=== PATIENT | female | born 1970 | race Two or more races ===

== ENCOUNTER 2016-03-25 17:44 | Emergency (ER) | payer SELFPAY ==
--- NOTE | 2016-03-25 17:50 | ER Document Report ---
ED Medical Screen (RME) - General Chief Complaint: Arm Injury Stated Complaint: RIGHT ARM INJURY Time seen by provider: 17:49 Mode of Arrival: Ambulatory Information source: Patient Notes: 45-year-old female complaining of right lateral proximal forearm pain after a vase fell off the counter onto her arm. She was concerned because she had previous surgery on the area 7 or 8 years ago. There is a superficial abrasion with some soft tissue swelling. TRAVEL OUTSIDE OF THE [place] IN LAST 30 DAYS: No - Related Data Allergies/Adverse Reactions: phenytoin sodium extended [From Dilantin] Allergy (Intermediate, Verified 17:36) rash topiramate [From Topamax] Allergy (Verified 01/16/16 17:36) Anaphylaxis tramadol [Tramadol] Allergy (Verified 01/16/16 17:36) Urticaria Past Medical History - Past Medical History Cardiac Medical History: Denies: Hx Heart Attack, Hx Hypertension Pulmonary Medical History: Reports: Hx Asthma Denies: Hx Bronchitis, Hx COPD, Hx Pneumonia Neurological Medical History: Reports: Hx Migraine, Hx Seizures - last Renal/ Medical History: Reports: Hx Kidney Stones Musculoskeltal Medical History: Reports Hx Arthritis - osteoarthritis, Reports Hx Musculoskeletal Trauma Skin Medical History: Reports Hx Cellulitis Traumatic Medical History: Reports: Hx Fractures Infectious Medical History: Reports: Hx HIV - No detectable viral loads Past Surgical History: Reports: Hx Abdominal Surgery - hernia, Hx Adenoidectomy , Hx Appendectomy, Hx Inguinal Hernia, Hx Tonsillectomy, Hx Tubal Ligation - Immunizations Immunizations up to date: Yes Hx Diphtheria, Pertussis, Tetanus Vaccination: Yes
[2016-03-25] MEDS ORDERED: ONDANSETRON 4 MG TAB.RAPDIS PO ONE (17:55)
--- NOTE | 2016-03-25 18:56 | ER Document Report ---
HPI - HPI Patient complains to provider of: arm injury Onset: This afternoon Onset/Duration: Sudden Quality of pain: Sharp Pain Level: 5 Context: Patient states that a face fell from a shelf hitting her right elbow. Patient states she has previously had surgery on her right elbow in the past several years ago. Patient is concerned that she may have injured her elbow due to her previous surgery. Patient complains of swelling to right elbow. Patient has a few abrasions to right elbow but states her tetanus is currently up-to-date. Associated Symptoms: Other - Right elbow pain Exacerbated by: Movement Relieved by: Denies Similar symptoms previously: No Recently seen / treated by doctor: No - ROS ROS below otherwise negative: Yes Systems Reviewed and Negative: Yes All other systems reviewed and negative - CONSTITUTIONAL Constitutional: DENIES: Fever, Chills - NEURO Neurology: DENIES: Weakness - REPRODUCTIVE Reproductive: DENIES: : - MUSCULOSKELETAL Musculoskeletal: REPORTS: Extremity pain - Right elbow - DERM Skin Color: Normal, [place] Notes: Abrasions to right elbow Past Medical History - General Information source: Patient - Social History Smoking Status: Never Smoker Frequency of alcohol use: None Drug Abuse: None 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 Lives with: Family Family History: Reviewed & Not Pertinent Patient has suicidal ideation: No Patient has homicidal ideation: No - Past Medical History Cardiac Medical History: Denies: Hx Heart Attack, Hx Hypertension Pulmonary Medical History: Reports: Hx Asthma Denies: Hx Bronchitis, Hx COPD, Hx Pneumonia Neurological Medical History: Reports: Hx Migraine, Hx Seizures - last Renal/ Medical History: Reports: Hx Kidney Stones Musculoskeltal Medical History: Reports Hx Arthritis - osteoarthritis, Reports Hx Musculoskeletal Trauma Skin Medical History: Reports Hx Cellulitis Traumatic Medical History: Reports: Hx Fractures Infectious Medical History: Reports: Hx HIV - No detectable viral loads Past Surgical History: Reports: Hx Abdominal Surgery - hernia, Hx Adenoidectomy , Hx Appendectomy, Hx Inguinal Hernia, Hx Tonsillectomy, Hx Tubal Ligation - Immunizations Immunizations up to date: Yes Hx Diphtheria, Pertussis, Tetanus Vaccination: Yes Vertical Provider Document - CONSTITUTIONAL Agree With Documented VS: Yes Exam Limitations: No Limitations General Appearance: WD/WN, No Apparent Distress - INFECTION CONTROL TRAVEL OUTSIDE OF THE [place] IN LAST 30 DAYS: No - HEENT HEENT: Atraumatic, Normocephalic - NECK Neck: Normal Inspection - RESPIRATORY Respiratory: Breath Sounds Normal, No Respiratory Distress - CARDIOVASCULAR Cardiovascular: Regular Rate, Regular Rhythm Pulses: Normal: Radial - BACK Back: Normal Inspection - MUSCULOSKELETAL/EXTREMETIES Musculoskeletal/Extremeties: MAEW, Tender - Right elbow tenderness over radial head. No deformity, no dislocation. Patient with faint abrasion overlying proximal forearm - NEURO Level of Consciousness: Awake, Alert, Appropriate Motor/Sensory: No Motor Deficit - DERM Integumentary: Warm, Dry Course - Diagnostic Test Radiology reviewed: Reports reviewed Procedures - Immobilization Right Elbow Pre-Proc Neuro Vasc Exam: Normal Immobilizer type: Sling Performed by: PCT Post-Proc Neuro Vasc Exam: Normal Alignment checked and good: Yes Discharge - Discharge Clinical Impression: Elbow injury Qualifiers: Encounter type: initial encounter Laterality: right Qualified Code(s): S59.901A - Unspecified injury of right elbow, initial encounter Abrasion of arm, right Qualifiers: Encounter type: initial encounter Qualified Code(s): S40.811A - Abrasion of right upper arm, initial encounter Condition: Good Disposition: HOME, SELF-CARE Instructions: Contusion ([facility]), Ice & Elevation ([facility]), Temporary Sling ([facility]), Abrasions ([facility]) Additional Instructions: Return immediately for any new or worsening symptoms Followup with your orthopedic care provider, call tomorrow to make a followup appointment Wear sling for the next 3 days and remove Forms: Return to Work Referrals: [facility] [Provider Group] - Follow up as needed
== END 2016-03-25 19:33 | disposition home or self-care (01) ==
LOC: ER 17:44
DX: S59.901A Unspecified injury of right elbow, initial encounter (principal); S40.811A Abrasion of right upper arm, initial encounter; W20.8XXA Other cause of strike by thrown, projected or falling object, initial encounter; I10 Essential (primary) hypertension; Z87.442 Personal history of urinary calculi; Z21 Asymptomatic human immunodeficiency virus [HIV] infection status; Z98.51 Tubal ligation status
CPT/HCPCS: 99283; 73080; S0119

== ENCOUNTER 2016-08-12 23:10 | Emergency (ER) | payer MEDICAID ==
[2016-08-13] MEDS ORDERED: NORMAL SALINE 1000 ML 1,000 ML IV ONE (01:12)
[2016-08-13] MEDS ORDERED: CEFTRIAXONE 1 GM/D5W RTU 50 ML IV ONE (01:12)
--- NOTE | 2016-08-13 02:47 | RADIOLOGY REPORT (SQ) ---
EXAM DESCRIPTION: CHEST SINGLE VIEW COMPLETED DATE/TIME: 08/13/2016 2:31 am REASON FOR STUDY: spectic protocol sob COMPARISON: 12/09/2015. EXAM PARAMETERS: NUMBER OF VIEWS: One view. TECHNIQUE: Single frontal radiographic view of the chest acquired. RADIATION DOSE: NA LIMITATIONS: None. FINDINGS: LUNGS AND PLEURA: No opacities, masses or pneumothorax. No pleural effusion. MEDIASTINUM AND HILAR STRUCTURES: No masses. Contour normal. HEART AND VASCULAR STRUCTURES: Heart normal in size. Normal vasculature. BONES: No acute findings. HARDWARE: None in the chest. OTHER: No other significant finding. IMPRESSION: NO ACUTE RADIOGRAPHIC FINDING IN THE CHEST. TECHNICAL DOCUMENTATION: JOB ID: [id number]
[2016-08-13 02:50] VITALS: BP 129/96
[2016-08-13 02:53] LABS: PROTHROMBIN TIME 13.9 SEC (11.4-15.4)
[2016-08-13 02:55] LABS: VENOUS BLOOD BASE EXCESS -0.6 mmol/L; VENOUS BLOOD HCO3 24.6 mmol/L (20-32); VENOUS BLOOD PCO2 42.4 mmHg (35-63); VENOUS BLOOD PH 7.38 (7.30-7.42)
[2016-08-13 02:56] LABS: ABSOLUTE BASOPHILS # (AUTO) 0.1 10^3/uL (0.0-0.2); ABSOLUTE EOSINOPHILS # (AUTO) 0.1 10^3/uL (0.0-0.6); ABSOLUTE MONOCYTES (AUTO) 0.7 10^3/uL (0.1-1.4); ABSOLUTE NEUT (AUTO) 3.8 10^3/uL (1.7-8.2); BASOPHILS % (AUTO) 0.8 % (0-2); EOSINOPHILS % (AUTO) 1.6 % (0-6); HEMATOCRIT 30.3 % (36.0-47.0); HEMOGLOBIN 9.8 g/dL (12.0-15.5); HGB HCT DIFFERENCE -0.9; LYMPHOCYTES % (AUTO) 39.3 % (13-45); MEAN CORPUSCULAR HEMOGLOBIN 28.7 pg (27.0-33.4); MEAN CORPUSCULAR HGB CONC 32.4 g/dL (32.0-36.0); MEAN CORPUSCULAR VOLUME 89 fl (80-97); MONOCYTES % (AUTO) 8.8 % (3-13); RED BLOOD COUNT 3.42 10^6/uL (3.72-5.28); RED CELL DISTRIBUTION WIDTH 14.7 % (11.5-14.0); SEGMENTED NEUTROPHILS % (AUTO) 49.5 % (42-78); WHITE BLOOD COUNT 7.6 10^3/uL (4.0-10.5)
--- NOTE | 2016-08-13 03:08 | ER Document Report ---
ED Skin Rash/Insect Bite/Abscs - General Chief Complaint: Insect Bite Stated Complaint: POSSIBLE SPIDER BITE Time Seen by Provider: 08/13/16 03:03 Mode of Arrival: Ambulatory Information source: Patient Notes: 45-year-old HIV-positive female who has not taken her HIV medication for 3 months, if complaining of red, warm, itching possible insect bite to the dorsal right forearm. No fever or chills. The nurse ordered septic workup and discussed getting a CD4 count with Dr. Tello prior to my evaluation of the patient. Upon evaluation and physical exam of the patient, this lab work was not indicated. TRAVEL OUTSIDE OF THE [place] IN LAST 30 DAYS: No - Related Data Allergies/Adverse Reactions: phenytoin sodium extended [From Dilantin] Allergy (Intermediate, Verified 23:48) rash topiramate [From Topamax] Allergy (Verified 08/12/16 23:48) Anaphylaxis tramadol [Tramadol] Allergy (Verified 08/12/16 23:48) Urticaria Past Medical History - General Information source: Patient - Social History Smoking Status: Current Every Day Smoker Frequency of alcohol use: None Drug Abuse: None Lives with: Spouse/Significant other Family History: Reviewed & Not Pertinent Pulmonary Medical History: Reports: Hx Asthma Neurological Medical History: Reports: Hx Migraine, Hx Seizures - last Renal/ Medical History: Reports: Hx Kidney Stones Musculoskeltal Medical History: Reports Hx Arthritis - osteoarthritis, Reports Hx Musculoskeletal Trauma Skin Medical History: Reports Hx Cellulitis Traumatic Medical History: Reports: Hx Fractures Infectious Medical History: Reports: Hx HIV - No detectable viral loads Past Surgical History: Reports: Hx Abdominal Surgery - hernia, Hx Adenoidectomy , Hx Appendectomy, Hx Inguinal Hernia, Hx Tonsillectomy, Hx Tubal Ligation - Immunizations Immunizations up to date: Yes Hx Diphtheria, Pertussis, Tetanus Vaccination: Yes Review of Systems - Review of Systems Constitutional: No symptoms reported. denies: Diaphoresis EENT: No symptoms reported Cardiovascular: No symptoms reported Respiratory: No symptoms reported Gastrointestinal: No symptoms reported Genitourinary: No symptoms reported Female Genitourinary: No symptoms reported Musculoskeletal: No symptoms reported Skin: See HPI Hematologic/Lymphatic: No symptoms reported Neurological/Psychological: No symptoms reported Physical Exam - Vital signs Vitals: Temp Pulse Resp BP Pulse Ox 97.6 F 69 24 H 124/87 H 100 08/12/16 23:47 08/12/16 23:47 08/12/16 23:47 08/12/16 23:47 08/12/16 23:47 Interpretation: Normal - General General appearance: Appears well, Alert - HEENT Head: Normocephalic, Atraumatic Eyes: Normal Pupils: PERRL Pharynx: Normal Neck: Supple - Respiratory Respiratory status: No respiratory distress Chest status: Nontender Breath sounds: Normal Chest palpation: Normal - Cardiovascular Rhythm: Regular Heart sounds: Normal auscultation Murmur: No - Abdominal Inspection: Normal Distension: No distension Bowel sounds: Normal Tenderness: Nontender Organomegaly: No organomegaly - Back Back: Normal, Nontender - Extremities General upper extremity: Normal inspection, Nontender, Normal color, Normal ROM , Normal temperature General lower extremity: Normal inspection, Nontender, Normal color, Normal ROM , Normal temperature, Normal weight bearing. No: Santosh's sign - Neurological Neuro grossly intact: Yes Cognition: Normal Orientation: AAOx4 [place] Coma Scale Eye Opening: Spontaneous [place] Coma Scale Verbal: Oriented [place] Coma Scale Motor: Obeys Commands Luis Miguel Coma Scale Total: 15 Speech: Normal Motor strength normal: LUE, RUE, LLE, RLE Sensory: Normal - Psychological Associated symptoms: Normal affect, Normal mood - Skin Skin Temperature: Warm Skin Moisture: Dry Skin Color: Normal Irregularity with: Swelling, Warmth, Lymphangitis, Induration - 2 pink warm 3 cm round indurated area dorsal right forearm Course - Re-evaluation Re-evalutation: 08/14/16 16:33 Late entry: The pruritus and erythema faded after the Benadryl, I am treating with antibiotics as precaution - Vital Signs Vital signs: Temp Pulse Resp BP Pulse Ox 97.6 F 69 18 129/96 H 100 08/12/16 23:47 08/12/16 23:47 08/13/16 04:19 08/13/16 02:02 08/13/16 04:20 - Laboratory Result Diagrams: 08/13/16 02:24 08/13/16 02:24 Laboratory results interpreted by me: 08/13/16 08/13/16 08/13/16 02:24 02:24 04:28 RBC 3.42 L 3.29 L Hgb 9.8 L 9.4 L Hct 30.3 L 31.2 L RDW 14.7 H Urine Blood MODERATE H Urine Urobilinogen 2.0 H Urine Ascorbic Acid 20 H MCHC 30.1 L Platelet Count 412 H T-Lymph CD4/CD8 Ratio 0.72 L % CD8 Cells 52.1 H Absolute CD8 Count 1459 H Discharge - Discharge Clinical Impression: pruritic insect bite, HIV positive, swollen insect bites right dorsal forearm Anemia Qualifiers: Anemia type: unspecified type Qualified Code(s): D64.9 - Anemia, unspecified Condition: Good Disposition: HOME, SELF-CARE Instructions: Swollen Insect Bite or Sting ([facility]), Use of Diphenhydramine, Clindamycin ([facility]) Additional Instructions: the CD4 count is a send out, will not be resulted tonight call me on Thursday for the result [phone] after 7 pm to er if worse urine, blood cultures pending cool compress to forearm over the counter benadryl for the itch finish the antibiotics take over the counter iron twice a day with over the counter stool softner see your doctor on august 20 as planned Prescriptions: Clindamycin HCl [Cleocin 150 mg Capsule] 300 mg PO TID #42 capsule Forms: Return to Work
[2016-08-13 03:13] LABS: ALANINE AMINOTRANSFERASE 21 U/L (9-52); ALBUMIN 3.5 g/dL (3.5-5.0); ALKALINE PHOSPHATASE 111 U/L (38-126); ANION GAP 7 (5-19); ASPARTATE AMINO TRANSFERASE 27 U/L (14-36); BILIRUBIN,DIRECT 0.3 mg/dL (0.0-0.4); BILIRUBIN,TOTAL 0.3 mg/dL (0.2-1.3); BLOOD UREA NITROGEN 18 mg/dL (7-20); CALCIUM 8.7 mg/dL (8.4-10.2); CARBON DIOXIDE 25 mmol/L (22-30); CHLORIDE 107 mmol/L (98-107); CREATININE RESULT 0.63 mg/dL (0.52-1.25); GLUCOSE 98 mg/dL (75-110); SODIUM 139.3 mmol/L (137-145); TOTAL PROTEIN 8.2 g/dL (6.3-8.2)
[2016-08-13] MEDS ORDERED: SULFAMETHOXAZOLE/TRIMETHOPRIM 800-160 MG TABLET PO ONE (03:14)
[2016-08-13] MEDS ORDERED: CEPHALEXIN 500 MG CAPSULE PO ONE (03:14)
[2016-08-13] MEDS ORDERED: DIPHENHYDRAMINE HCL 50 MG CAPSULE PO ONE (03:14)
[2016-08-13] MEDS ORDERED: DIPHENHYDRAMINE HCL 50 MG/ML VIAL IV ONE (03:26)
[2016-08-13] MEDS ORDERED: CLINDAMYCIN PHOSPHATE INJ 300 MG/2 ML SDV IV ONE (03:26)
[2016-08-13 05:09] LABS: APPEARANCE,URINE SLIGHTLY-CLOUDY; BILIRUBIN,URINE NEGATIVE (NEGATIVE); GLUCOSE, URINE NEGATIVE (NEGATIVE); KETONES,URINE NEGATIVE (NEGATIVE); LEUKOCYTE ESTERASE,URINE NEGATIVE (NEGATIVE); NITRITE,URINE NEGATIVE (NEGATIVE); PROTEIN,URINE NEGATIVE (NEGATIVE); URINE SPECIFIC GRAVITY 1.028
--- NOTE | 2016-08-13 10:56 | EKG REPORT ---
SEVERITY:- NORMAL ECG - SINUS RHYTHM : Confirmed by: Donna Solitario 13-Aug-2016 10:55:38
[2016-08-14 11:40] LABS: ABSOLUTE CD 4 HELPER 1053 /uL (359-1519); CD BASOPHILS 0 % (.); CD EOSINOPHILS 2 % (.); CD MONOCYTES 9 % (.); CD NEUTROPHILS 48 % (.); HEMATOCRIT . 31.2 % (34.0-46.6); HEMOGLOBIN 9.4 g/dL (11.1-15.9); IMMATURE GRANULOCYTES 0 % (.); LYMPHS(ABSOLUTE) 2.8 x10E3/uL (0.7-3.1); MCH 28.6 pg (26.6-33.0); MCHC 30.1 g/dL (31.5-35.7); MCV 95 fL (79-97); NEUTROPHILS(ABSOLUTE) 3.4 x10E3/uL (1.4-7.0); PLATELETS 412 x10E3/uL (150-379); RBC 3.29 x10E6/uL (3.77-5.28); RDW 14.6 % (12.3-15.4)
== END 2016-08-13 04:46 | disposition home or self-care (01) ==
LOC: ER 23:10
DX: S50.861A Insect bite (nonvenomous) of right forearm, initial encounter (principal); W57.XXXA Bitten or stung by nonvenomous insect and other nonvenomous arthropods, initial encounter; Z21 Asymptomatic human immunodeficiency virus [HIV] infection status; D64.9 Anemia, unspecified; L29.9 Pruritus, unspecified; Z87.442 Personal history of urinary calculi; Z98.51 Tubal ligation status
CPT/HCPCS: 93005; 86360; 36415; 87040; 87086; 84703; 85025; 85610; 80053; 81001; 82803; 83605; 71010; 93010; J1200; J7030; 96361; 96365; 96375; 99284

== ENCOUNTER → 2017-03-26 | Outpatient (CLI) | payer MEDICAID ==
--- NOTE | 2017-03-26 17:51 | RADIOLOGY REPORT (SQ) ---
EXAM DESCRIPTION: FOOT BILATERAL 3 VIEWS COMPLETED DATE/TIME: 03/26/2017 5:37 pm REASON FOR STUDY: PAIN IN RIGHT FOOT,PAIN IN LEFT FOOT M79.671 PAIN IN RIGHT FOOT M79.672 PAIN IN LEFT FOOT COMPARISON: None. NUMBER OF VIEWS: Three views of each foot TECHNIQUE: AP, lateral and oblique radiographic images acquired of the right and left foot. LIMITATIONS: None. FINDINGS: MINERALIZATION: Normal. BONES: No acute fracture or dislocation. No worrisome bone lesions. JOINTS: No effusions. SOFT TISSUES: No soft tissue swelling. No foreign body. OTHER: Orthopedic plate is identified transfixing the proximal 2nd metatarsal and intermediate cuneif orm tarsal bone on the left. Mild plantar spurring is identified on the right. IMPRESSION: No acute fracture or dislocation. Orthopedic hardware in the left foot as noted above. There is mild plantar spurring on the right. TECHNICAL DOCUMENTATION: JOB ID: [id number] [employer]- All Rights Reserved
[2017-03-26 18:29] LABS: ABSOLUTE BASOPHILS # (AUTO) 0.1 10^3/uL (0.0-0.2); ABSOLUTE EOSINOPHILS # (AUTO) 0.1 10^3/uL (0.0-0.6); ABSOLUTE LYMPHOCYTES (AUTO) 2.9 10^3/uL (0.5-4.7); ABSOLUTE MONOCYTES (AUTO) 0.5 10^3/uL (0.1-1.4); ABSOLUTE NEUT (AUTO) 4.6 10^3/uL (1.7-8.2); BASOPHILS % (AUTO) 0.7 % (0-2); EOSINOPHILS % (AUTO) 0.8 % (0-6); HEMATOCRIT 33.9 % (36.0-47.0); HEMOGLOBIN 11.5 g/dL (12.0-15.5); LYMPHOCYTES % (AUTO) 35.9 % (13-45); MEAN CORPUSCULAR HEMOGLOBIN 29.7 pg (27.0-33.4); MEAN CORPUSCULAR HGB CONC 33.8 g/dL (32.0-36.0); MEAN CORPUSCULAR VOLUME 88 fl (80-97); MONOCYTES % (AUTO) 5.9 % (3-13); PLATELET COUNT 382 10^3/uL (150-450); RED BLOOD COUNT 3.86 10^6/uL (3.72-5.28); RED CELL DISTRIBUTION WIDTH 16.9 % (11.5-14.0); SEGMENTED NEUTROPHILS % (AUTO) 56.7 % (42-78); TOTAL CELLS COUNTED % (AUTO) 100 %; WHITE BLOOD COUNT 8.1 10^3/uL (4.0-10.5)
[2017-03-26 19:05] LABS: ALANINE AMINOTRANSFERASE 21 U/L (9-52); ALBUMIN 4.3 g/dL (3.5-5.0); ALKALINE PHOSPHATASE 98 U/L (38-126); ANION GAP 12 (5-19); ASPARTATE AMINO TRANSFERASE 28 U/L (14-36); BILIRUBIN,DIRECT 0.3 mg/dL (0.0-0.4); BILIRUBIN,TOTAL 1.3 mg/dL (0.2-1.3); BLOOD UREA NITROGEN 14 mg/dL (7-20); CALCIUM 9.4 mg/dL (8.4-10.2); CARBON DIOXIDE 24 mmol/L (22-30); CHLORIDE 105 mmol/L (98-107); GLUCOSE 87 mg/dL (75-110); POTASSIUM 3.9 mmol/L (3.6-5.0); SODIUM 140.5 mmol/L (137-145); TOTAL PROTEIN 9.1 g/dL (6.3-8.2)
[2017-03-30 13:30] LABS: HIV-1 RNA PCR QUANT <20 copies/mL (.)
[2017-03-30 18:37] LABS: % CD 4 POS LYMPH 41.8 % (30.8-58.5); ABSOLUTE CD 4 HELPER 1212 /uL (359-1519); CD BASOPHILS 0 % (Not Estab.); CD EOSINOPHILS 1 % (Not Estab.); CD MONOCYTES 5 % (Not Estab.); CD NEUTROPHILS 57 % (Not Estab.); EOSINOPHILS (ABSOLUTE) 0.1 x10E3/uL (0.0-0.4); HEMOGLOBIN 11.3 g/dL (11.1-15.9); IMMATURE GRANULOCYTES 0 % (Not Estab.); LYMPHS(ABSOLUTE) 2.9 x10E3/uL (0.7-3.1); MCH 29.8 pg (26.6-33.0); MCHC 31.9 g/dL (31.5-35.7); MCV 93 fL (79-97); MONOCYTES(ABSOLUTE) 0.4 x10E3/uL (0.1-0.9); NEUTROPHILS(ABSOLUTE) 4.4 x10E3/uL (1.4-7.0); PLATELETS 442 x10E3/uL (150-379); RBC 3.79 x10E6/uL (3.77-5.28); RDW 16.5 % (12.3-15.4); WBC 7.8 x10E3/uL (3.4-10.8)
== END ==
LOC: OD 17:08
PROVIDERS: ATTEND Nurse Practitioner
DX: M79.671 Pain in right foot (principal); M79.672 Pain in left foot
CPT/HCPCS: 36415; 80053; 85025; 86361; 87536

== ENCOUNTER 2017-04-14 23:51 | Emergency (ER) | payer MEDICAID ==
[2017-04-15] MEDS ORDERED: ACETAMINOPHEN 325 MG TABLET PO ONE (00:25)
--- NOTE | 2017-04-15 00:29 | ER Document Report ---
ED Medical Screen (RME) - General Chief Complaint: Fall Stated Complaint: FALL RIGHT SIDE PAIN Time Seen by Provider: 04/15/17 00:25 Mode of Arrival: Ambulatory Information source: Patient Notes: 46-year-old female presents to ED for pain to the right side of her face and right arm and elbow. She states she fell about 215 this afternoon and took her last Percocet at 230 that she gets from her neurologist for her migraines. She states she broke this elbow about 10 years ago and had surgery on it. She also states she is a HIV positive for 18 years. There is bruising beside the right eye and below the right eye and there is also mild swelling and bruising to the right elbow. 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 She came to the emergency room after work. I have greeted and performed a rapid initial assessment of this patient. A comprehensive ED assessment and evaluation of the patient, analysis of test results and completion of medical decision making process will be conducted by an additional ED providers. TRAVEL OUTSIDE OF THE [place] IN LAST 30 DAYS: No - Related Data Allergies/Adverse Reactions: phenytoin sodium extended [From Dilantin] Allergy (Intermediate, Verified 23:54) rash topiramate [From Topamax] Allergy (Verified 04/14/17 23:54) Anaphylaxis tramadol [Tramadol] Allergy (Verified 04/14/17 23:54) Urticaria Past Medical History - Past Medical History Cardiac Medical History: Denies: Hx Heart Attack, Hx Hypertension Pulmonary Medical History: Reports: Hx Asthma Denies: Hx Bronchitis, Hx COPD, Hx Pneumonia Neurological Medical History: Reports: Hx Migraine, Hx Seizures - last Renal/ Medical History: Reports: Hx Kidney Stones. Denies: Hx Peritoneal Dialysis Musculoskeltal Medical History: Reports Hx Arthritis - osteoarthritis, Reports Hx Musculoskeletal Trauma Skin Medical History: Reports Hx Cellulitis Traumatic Medical History: Reports: Hx Fractures Infectious Medical History: Reports: Hx HIV - No detectable viral loads Past Surgical History: Reports: Hx Abdominal Surgery - hernia, Hx Adenoidectomy , Hx Appendectomy, Hx Inguinal Hernia, Hx Tonsillectomy, Hx Tubal Ligation - Immunizations Immunizations up to date: Yes Hx Diphtheria, Pertussis, Tetanus Vaccination: Yes Physical Exam - Vital signs Vitals: Temp Pulse Resp BP Pulse Ox 97.8 F 67 20 102/81 99 04/15/17 00:09 04/15/17 00:09 04/15/17 00:09 04/15/17 00:09 04/15/17 00:09 Course - Vital Signs Vital signs: Temp Pulse Resp BP Pulse Ox 97.8 F 67 20 102/81 99 04/15/17 00:09 04/15/17 00:09 04/15/17 00:09 04/15/17 00:09 04/15/17 00:09
[2017-04-15] MEDS ORDERED: ACETAMINOPHEN 325 MG TABLET ONE (00:38)
--- NOTE | 2017-04-15 01:12 | RADIOLOGY REPORT (SQ) ---
EXAM DESCRIPTION: CT FACIAL AREA WITHOUT COMPLETED DATE/TIME: 04/15/2017 12:43 am REASON FOR STUDY: fall pain to the right side of her face COMPARISON: CT facial bones 07/19/2009. TECHNIQUE: Noncontrasted images through the facial bones and orbits windowed for bone and soft tissu e. Additional coronal and sagittal reconstructed images reviewed. All images stored on PACS. All CT scanners at this facility use dose modulation, iterative reconstruction, and/or weight based d osing when appropriate to reduce radiation dose to as low as reasonably achievable (ALARA). [facility]: Dose Right [facility]: CareDose [facility]: Dose Right [facility]: Teradose 4D [facility]: [employer] RADIATION DOSE: CT Rad equipment meets quality standard of care and radiation dose reduction techniq ues were employed. CTDIvol: 30.4 mGy. DLP: 541 mGy-cm. mGy. LIMITATIONS: None. FINDINGS: FACIAL BONES: No acute fracture. ORBITS: Intact. No fracture. Symmetric intact globes and retroorbital soft tissues. PARANASAL SINUSES: No air-fluid levels. Maxillary sinus outlets are patent. SOFT TISSUES: Mild soft tissue swelling lateral to the right orbit. INFERIOR BRAIN: Limited view. No acute findings. IMPRESSION: Mild soft tissue swelling lateral to the right orbit. No acute facial bone fracture. TECHNICAL DOCUMENTATION: JOB ID: [id number] [place]- Quality ID # [id number]: Final reports with documentation of one or more dose reduction techniques (e.g., Au tomated exposure control, adjustment of the mA and/or kV according to patient size, use of iterative reconstruction technique) 2010 [employer]- All Rights Reserved
--- NOTE | 2017-04-15 01:15 | RADIOLOGY REPORT (SQ) ---
EXAM DESCRIPTION: ELBOW RIGHT OVER 2 VIEWS COMPLETED DATE/TIME: 04/15/2017 12:59 am REASON FOR STUDY: fall pain to the right side of her face and right COMPARISON: Right elbow x-ray 03/25/2016. NUMBER OF VIEWS: Four views. TECHNIQUE: AP, lateral, and both oblique radiographic images acquired of the right elbow. LIMITATIONS: None. FINDINGS: MINERALIZATION: Normal. BONES: No acute fracture or dislocation. JOINT: No effusion. SOFT TISSUES: No soft tissue swelling. No radiopaque foreign body. OTHER: Redemonstration of 2 orthopedic screws at the olecranon. IMPRESSION: Postsurgical changes. No radiographic evidence of acute injury. TECHNICAL DOCUMENTATION: JOB ID: [id number] 2010 [employer]- All Rights Reserved
[2017-04-15] MEDS ORDERED: OXYCODONE HCL IR 5 MG TABLET PO ONE (01:38)
--- NOTE | 2017-04-15 01:38 | ER Document Report ---
ED Fall - General Chief Complaint: Fall Stated Complaint: FALL RIGHT SIDE PAIN Time Seen by Provider: 04/15/17 00:25 Mode of Arrival: Ambulatory Information source: Patient Notes: Patient is a 46-year-old female [id number] who presents emergency department after she was walking, slipped and fell at 2:30 PM landing on her right elbow and hitting her right eye. She admits to pain around her eye and intermittent blurry vision but otherwise denies any vision loss, dizziness, loss of consciousness, pain with eye movement. she admits to intermittent headache but otherwise denies any nausea, vomiting, altered mental status. She states that she was able to work today but came to the ER to make sure that her elbow was not broken. She states that her elbow had previously required surgery in the past. She admits to pain with movement. But denies any bruising , swelling. She admits to right lower back pain as well since she states she landed on that part of her back. Denies any hematuria, nausea or vomiting Past medical history significant for HIV, osteoarthritis TRAVEL OUTSIDE OF THE [place] IN LAST 30 DAYS: No - Related data Allergies/Adverse Reactions: phenytoin sodium extended [From Dilantin] Allergy (Intermediate, Verified 23:54) rash topiramate [From Topamax] Allergy (Verified 04/14/17 23:54) Anaphylaxis tramadol [Tramadol] Allergy (Verified 04/14/17 23:54) Urticaria Past Medical History - General Information source: Patient - Social History Smoking Status: Current Some Day Smoker Chew tobacco use (# tins/day): No Frequency of alcohol use: None Drug Abuse: None Family History: Reviewed & Not Pertinent Patient has suicidal ideation: No Patient has homicidal ideation: No - Past Medical History Cardiac Medical History: Denies: Hx Heart Attack, Hx Hypertension Pulmonary Medical History: Reports: Hx Asthma Denies: Hx Bronchitis, Hx COPD, Hx Pneumonia Neurological Medical History: Reports: Hx Migraine, Hx Seizures - last Renal/ Medical History: Reports: Hx Kidney Stones. Denies: Hx Peritoneal Dialysis Musculoskeltal Medical History: Reports Hx Arthritis - osteoarthritis, Reports Hx Musculoskeletal Trauma Skin Medical History: Reports Hx Cellulitis Traumatic Medical History: Reports: Hx Fractures Infectious Medical History: Reports: Hx HIV - No detectable viral loads Past Surgical History: Reports: Hx Abdominal Surgery - hernia, Hx Adenoidectomy , Hx Appendectomy, Hx Inguinal Hernia, Hx Tonsillectomy, Hx Tubal Ligation - Immunizations Immunizations up to date: Yes Hx Diphtheria, Pertussis, Tetanus Vaccination: Yes Review of Systems - Review of Systems Constitutional: No symptoms reported EENT: See HPI Cardiovascular: No symptoms reported Respiratory: No symptoms reported Gastrointestinal: No symptoms reported Musculoskeletal: See HPI Skin: See HPI Neurological/Psychological: See HPI -: Yes All other systems reviewed and negative Physical Exam - Vital signs Vitals: Temp Pulse Resp BP Pulse Ox 97.8 F 67 20 102/81 99 04/15/17 00:09 04/15/17 00:09 04/15/17 00:09 04/15/17 00:09 04/15/17 00:09 - Notes Notes: PHYSICAL EXAMINATION: GENERAL: Well-appearing, well-nourished and in no acute distress. GCS 15 HEAD: Atraumatic, normocephalic. EYES: Pupils equal round and reactive to light, extraocular movements intact, sclera anicteric, conjunctiva are normal. No evidence of orbital ecchymosis without edema, deformity of the right eye ENT: Nares patent, oropharynx clear without exudates. Moist mucous membranes. No hemanotympanum . No blood in nares. No dental fracture NECK: Normal range of motion, supple without lymphadenopathy. Trachea midline LUNGS: Breath sounds clear to auscultation bilaterally and equal. No wheezes rales or rhonchi. HEART: Regular rate and rhythm without murmurs. Pulses intact all throughout. ABDOMEN: Soft, nontender, nondistended abdomen. No guarding, no rebound. No masses appreciated. Musculoskeletal: superficial tenderness of the right elbow without evidence of deformity, ecchymosis, edema Normal range of motion, no pitting or edema. No cyanosis. Hip non tender, stable. Alarm Technician strength equal bilaterally. No CVA tenderness but right paralumbar muscular tenderness to palpation without palpable deformities of the chest wall NEUROLOGICAL: Cranial nerves grossly intact. Normal speech, normal gait. Normal sensory, motor, and reflex exams. PSYCH: Normal mood, normal affect. SKIN: Warm, No active bleeding Course - Re-evaluation Re-evalutation: 04/15/17 03:19 Patient is a 46-year-old female is hemodynamically stable, no acute distress and afebrile. No evidence of underlying fracture noted on facial study. No evidence of fracture or dislocation noted on elbow study. Patient states she feels better after receiving a dose of her home Percocet. Otherwise eye exam did not reveal any evidence of corneal abrasion, retinal injury. Discussed with patient to follow-up with ophthalmology as needed. Otherwise will discharge home. Given strict return precautions. - Vital Signs Vital signs: Temp Pulse Resp BP Pulse Ox 98.7 F 74 16 132/84 H 100 04/15/17 03:40 04/15/17 03:40 04/15/17 03:40 04/15/17 03:40 04/15/17 03:40 - Diagnostic Test Radiology reviewed: Image reviewed, Reports reviewed Procedures - Ultrasound/Bedside Ultrasound/Bedside Ultrasound: Normal, Other - FAST exam did not reveal any evidence of free fluid within the abdomen, pericardial effusion Discharge - Discharge Clinical Impression: Fall Qualifiers: Encounter type: initial encounter Qualified Code(s): W19.XXXA - Unspecified fall, initial encounter Condition: Good Disposition: HOME, SELF-CARE Additional Instructions: HEAD INJURY PRECAUTIONS: At this point, there is no evidence that your head injury is serious. Observation is necessary, however. Take only clear liquids for the first few hours, unless told otherwise by the doctor. If no pain medication was prescribed, you may take acetaminophen according to the directions on the bottle. Do not take any medication that may alter your level of alertness (unless you've discussed it with the doctor first) . Limit activity for the first 24 hours. Bed rest is best. During the first 24 hours, check to see approximately every two to three hours that the patient is easily arousable, responds normally, and can perform common tasks such as walking without difficulty. Contact your doctor or go to the hospital if any of the following things occur: Persistent vomiting, difficulty in arousing the patient, worsening or continued headache, or failure to improve as expected. Head injuries can cause symptoms that persist for a few days or even a few weeks. CONTUSION: Your injury has resulted in a contusion -- a crushing of the deep tissues. No injury to important structures was detected during the physician's exam. Contusions vary in the amount of pain they cause, and in the length of time required for healing. Typically, the area will become bruised, and will remain painful to touch for two or three weeks. However, most patients are back to working and playing within a few days. After the initial period of rest and cold-packs, your symptoms (together with the doctor's recommendations) will determine how rapidly you can get back to full activity. Usually this means "do what feels okay, but don't do things that hurt." If re-examination was recommended, it's important to follow up as instructed. Call the doctor or return any time if pain increases, if swelling becomes severe, if you develop numbness or weakness in an injured extremity, or if any other alarming symptoms occur. LOW BACK PAIN: Three out of every four people will have an episode of disabling back pain during their lifetime. Most commonly the pain is due to straining of the muscles and ligaments in the low back. Usual treatment includes: (1) Rest on a firm surface. Avoid lying on your stomach. (2) Ice pack the painful area. After a few days, gentle heat may be used intermittently to relax the area, or ice packs can be continued. (3) Medication may be needed -- muscle relaxers and antiinflammatory medicines are commonly used. (4) As the back improves, exercises are prescribed to strengthen the back and abdominal muscles. Your doctor will advise you on the proper care for your back at each stage in your recovery. You may be better in a few days -- or healing may take several weeks. If new symptoms of a "herniated disc" (radiation of pain, numbness, or tingling down the back of the leg or weakness in the leg) occur, you should be re-examined. Further testing may be necessary. USE OF TYLENOL (ACETAMINOPHEN): Acetaminophen may be taken for pain relief or fever control. It's much safer than aspirin, offering a wider range of "safe" dosages. It is safe during . Some brand names are Tylenol, Panadol, Datril, Anacin 3, Tempra, and Liquiprin. Acetaminophen can be repeated every four hours. The following are maximum recommended dosages: WEIGHT Dose Drops Elixir Chewable( 80mg) (LBS.) drprs=droppers tsp=teaspoon 6 40 mg 0.4 ml (1/2) 6-11 80 mg 0.8 ml (full) tsp 1 tab 12-16 120 mg 1 1/2 drprs 3/4 tsp 1 1/2 tabs 17-23 160 mg 2 drprs 1 tsp 2 tabs 24-30 240 mg 3 drprs 1 1/2 tsp 3 tabs 30-35 320 mg 2 tsp 4 tabs 36-41 360 mg 2 1/4 tsp 4 1/2 tabs 42-47 400 mg 2 1/2 tsp 5 tabs 48-53 480 mg 3 tsp 6 tabs 54-59 520 mg 3 1/4 tsp 6 1/2 tabs 60-64 560 mg 3 1/2 tsp 7 tabs 65-70 600 mg 3 3/4 tsp 7 1/2 tabs 71-76 640 mg 4 tsp 8 tabs 77-82 720 mg 4 1/2 tsp 9 tabs 83-88 800 mg 5 tsp 10 tabs >89 pounds or adults 650 mg to 900 mg Acetaminophen can be repeated every four hours. Maximum dose not to exceed 4000 mg a day. These maximum recommended dosages are slightly higher than the dosages written on the product container, but these dosages are very safe and below the toxic dosage for acetaminophen. ICE PACKS: Apply ice packs frequently against the painful area. Many different schedules are recommended, such as "20 minutes on, 20 minutes off" or "one hour ice, two hours rest." If you need to work, you may need to go longer between ice treatments. You should plan to have the area ice packed AT LEAST one fourth of the time. The ice should be applied over the wrap, tape, or splint, or over a layer of cloth -- not directly against the skin. Some ice bags have a built-in cloth and can be put directly on the skin. WARM PACKS: After approximately two days, apply gentle heat (such as a heating pad or hot water bottle) for about 20 to 30 minutes about every two hours -- at least four times daily. Warmth and elevation will help you make a more rapid recovery , and will ease the pain considerably. Do not use HOT heat, and never apply heat for longer than 30 minutes. The continuous heat can invisibly damage skin and muscles -- even when no burn is seen on the surface. Damaged muscles can make you MORE sore. ORAL NARCOTIC MEDICATION: You have been given a prescription for pain control. This medication is a narcotic. It's best taken with food, as nausea can result if taken on an empty stomach. Don't operate machinery or drive within six hours of taking this medication. Do not combine this medicine with alcohol, or with any medication which can cause sedation (such as cold tablets or sleeping pills) unless you get permission from the physician. Narcotics tend to cause constipation. If possible, drink plenty of fluids and eat a diet high in fiber and fruits. FOLLOW-UP CARE: If you have been referred to a physician for follow-up care, call the physician s office for an appointment as you were instructed or within the next two days. If you experience worsening or a significant change in your symptoms, notify the physician immediately or return to the Emergency Department at any time for re-evaluation. Prescriptions: Oxycodone HCl/Acetaminophen [Percocet 5-325 mg Tablet] 1 - 2 tab PO Q4H PRN #10 tablet PRN Reason: Forms: Return to Work
[2017-04-15] MEDS ORDERED: TETRACAINE HCL 0.5% OPH SOLN 2 ML OD ONE (02:27)
[2017-04-15 03:41] VITALS: BP 132/84
== END 2017-04-15 03:41 | disposition home or self-care (01) ==
LOC: ER 23:51
DX: S59.901A Unspecified injury of right elbow, initial encounter (principal); H57.11 Ocular pain, right eye; H53.8 Other visual disturbances; W01.0XXA Fall on same level from slipping, tripping and stumbling without subsequent striking against object, initial encounter; Z21 Asymptomatic human immunodeficiency virus [HIV] infection status; Z87.442 Personal history of urinary calculi
CPT/HCPCS: 99284; 73080; 70486; J3490 ×2

== ENCOUNTER 2017-06-23 19:02 | Emergency (ER) | payer MEDICAID ==
--- NOTE | 2017-06-23 19:44 | ER Document Report ---
ED Medical Screen (RME) - General Chief Complaint: Flu Symptoms Stated Complaint: FLU SYMPTOMS Time Seen by Provider: 06/23/17 19:39 Notes: 46-year-old female patient who is HIV positive on medication for this. She reports flulike symptoms for the past week, worse the last 3 days. She has some laryngitis that comes and goes and is present now. She does have a sore throat, fever, generalized myalgias aching all over. Some chills. She had not had a flu shot. She is not coughing very much at all. She does have asthma. She has not had a runny nose. I have greeted and performed a rapid initial assessment of this patient. A comprehensive ED assessment and evaluation of the patient, analysis of test results and completion of the medical decision making process will be conducted by additional ED providers. TRAVEL OUTSIDE OF THE [place] IN LAST 30 DAYS: No - Related Data Allergies/Adverse Reactions: phenytoin sodium extended [From Dilantin] Allergy (Intermediate, Verified 19:03) rash topiramate [From Topamax] Allergy (Verified 06/23/17 19:03) Anaphylaxis tramadol [Tramadol] Allergy (Verified 06/23/17 19:03) Urticaria Past Medical History - Past Medical History Cardiac Medical History: Denies: Hx Heart Attack, Hx Hypertension Pulmonary Medical History: Reports: Hx Asthma Denies: Hx Bronchitis, Hx COPD, Hx Pneumonia Neurological Medical History: Reports: Hx Migraine, Hx Seizures - last Renal/ Medical History: Reports: Hx Kidney Stones. Denies: Hx Peritoneal Dialysis Musculoskeltal Medical History: Reports Hx Arthritis - osteoarthritis, Reports Hx Musculoskeletal Trauma Skin Medical History: Reports Hx Cellulitis Traumatic Medical History: Reports: Hx Fractures Infectious Medical History: Reports: Hx HIV - No detectable viral loads Past Surgical History: Reports: Hx Abdominal Surgery - hernia, Hx Adenoidectomy , Hx Appendectomy, Hx Inguinal Hernia, Hx Tonsillectomy, Hx Tubal Ligation - Immunizations Immunizations up to date: Yes Hx Diphtheria, Pertussis, Tetanus Vaccination: Yes Physical Exam - Vital signs Vitals: Temp Pulse Resp BP Pulse Ox 97.8 F 82 18 146/105 H 97 06/23/17 19:36 06/23/17 19:36 06/23/17 19:36 06/23/17 19:36 06/23/17 19:36 Course - Vital Signs Vital signs: Temp Pulse Resp BP Pulse Ox 97.8 F 82 18 146/105 H 97 06/23/17 19:36 06/23/17 19:36 06/23/17 19:36 06/23/17 19:36 06/23/17 19:36
[2017-06-23] MEDS ORDERED: KETOROLAC TROMETHAMINE 60 MG/2 ML SDV IM ONE (20:35)
[2017-06-23] MEDS ORDERED: ACETAMINOPHEN 325 MG TABLET PO ONE (20:35)
[2017-06-23] MEDS ORDERED: METOCLOPRAMIDE HCL ORAL SOLN 10 MG/10 ML UDCUP PO ONE (20:36)
[2017-06-23] MEDS ORDERED: MAG HYDROX/AL HYDROX/SIMETH SUSP 30 ML UDCUP PO ONE (20:36)
[2017-06-23] MEDS ORDERED: LIDOCAINE 2% VISCOUS SOLN 20 ML UDCUP PO ONE ×2 (20:36→21:45)
[2017-06-23 20:39] LABS: ABSOLUTE EOSINOPHILS # (AUTO) 0.1 10^3/uL (0.0-0.6); ABSOLUTE LYMPHOCYTES (AUTO) 2.1 10^3/uL (0.5-4.7); ABSOLUTE MONOCYTES (AUTO) 0.4 10^3/uL (0.1-1.4); ABSOLUTE NEUT (AUTO) 3.7 10^3/uL (1.7-8.2); BASOPHILS % (AUTO) 0.3 % (0-2); EOSINOPHILS % (AUTO) 0.9 % (0-6); HEMATOCRIT 37.9 % (36.0-47.0); HEMOGLOBIN 12.5 g/dL (12.0-15.5); LYMPHOCYTES % (AUTO) 33.8 % (13-45); MEAN CORPUSCULAR HEMOGLOBIN 29.9 pg (27.0-33.4); MEAN CORPUSCULAR HGB CONC 32.9 g/dL (32.0-36.0); MEAN CORPUSCULAR VOLUME 91 fl (80-97); PLATELET COUNT 315 10^3/uL (150-450); RED BLOOD COUNT 4.17 10^6/uL (3.72-5.28); RED CELL DISTRIBUTION WIDTH 15.5 % (11.5-14.0); TOTAL CELLS COUNTED % (AUTO) 100 %; WHITE BLOOD COUNT 6.3 10^3/uL (4.0-10.5)
[2017-06-23 20:53] LABS: ALANINE AMINOTRANSFERASE 21 U/L (9-52); ALBUMIN 4.6 g/dL (3.5-5.0); ALKALINE PHOSPHATASE 117 U/L (38-126); ANION GAP 15 (5-19); ASPARTATE AMINO TRANSFERASE 39 U/L (14-36); BILIRUBIN,DIRECT 0.4 mg/dL (0.0-0.4); BILIRUBIN,TOTAL 1.3 mg/dL (0.2-1.3); BLOOD UREA NITROGEN 15 mg/dL (7-20); CARBON DIOXIDE 24 mmol/L (22-30); CHLORIDE 102 mmol/L (98-107); GLUCOSE 92 mg/dL (75-110); POTASSIUM 4.1 mmol/L (3.6-5.0); SODIUM 140.7 mmol/L (137-145)
--- NOTE | 2017-06-23 21:41 | ER Document Report ---
ED General - General Chief Complaint: Flu Symptoms Stated Complaint: FLU SYMPTOMS Time Seen by Provider: 06/23/17 19:39 TRAVEL OUTSIDE OF THE [place] IN LAST 30 DAYS: No - HPI Patient complains to provider of: Flulike symptoms Notes: Patient coming in for evaluation of flulike symptoms nausea vomiting diffuse muscle aches myalgias and generalized fatigue. Patient states that she is HIV positive is on medications for HIV however has an undetectable viral load at this time. Patient states subjective fevers at home however afebrile here. Patient also states she recently ran out of her pain medication as currently prescribed Percocet. Patient also states she has intermittent sore throat for the last few days patient denies any recent travel denies any recent antibiotics otherwise resting comfortably - Related Data Allergies/Adverse Reactions: phenytoin sodium extended [From Dilantin] Allergy (Intermediate, Verified 19:03) rash topiramate [From Topamax] Allergy (Verified 06/23/17 19:03) Anaphylaxis tramadol [Tramadol] Allergy (Verified 06/23/17 19:03) Urticaria Past Medical History - Social History Smoking Status: Former Smoker Chew tobacco use (# tins/day): No Frequency of alcohol use: Occasional Drug Abuse: None Family History: Reviewed & Not Pertinent Patient has suicidal ideation: No Patient has homicidal ideation: No - Past Medical History Cardiac Medical History: Denies: Hx Heart Attack, Hx Hypertension Pulmonary Medical History: Reports: Hx Asthma Denies: Hx Bronchitis, Hx COPD, Hx Pneumonia Neurological Medical History: Reports: Hx Migraine, Hx Seizures - last Renal/ Medical History: Reports: Hx Kidney Stones. Denies: Hx Peritoneal Dialysis Musculoskeltal Medical History: Reports Hx Arthritis - osteoarthritis, Reports Hx Musculoskeletal Trauma Skin Medical History: Reports Hx Cellulitis Traumatic Medical History: Reports: Hx Fractures Infectious Medical History: Reports: Hx HIV - No detectable viral loads Past Surgical History: Reports: Hx Abdominal Surgery - hernia, Hx Adenoidectomy , Hx Appendectomy, Hx Inguinal Hernia, Hx Tonsillectomy, Hx Tubal Ligation - Immunizations Immunizations up to date: Yes Hx Diphtheria, Pertussis, Tetanus Vaccination: Yes Review of Systems - Review of Systems Constitutional: Fever, Weakness EENT: Throat pain Cardiovascular: No symptoms reported Respiratory: No symptoms reported Gastrointestinal: No symptoms reported Genitourinary: No symptoms reported Female Genitourinary: No symptoms reported Musculoskeletal: Muscle pain Skin: No symptoms reported Hematologic/Lymphatic: No symptoms reported Neurological/Psychological: No symptoms reported Physical Exam - Vital signs Vitals: Temp Pulse Resp BP Pulse Ox 97.8 F 82 18 146/105 H 97 06/23/17 19:36 06/23/17 19:36 06/23/17 19:36 06/23/17 19:36 06/23/17 19:36 Interpretation: Normal - General General appearance: Appears well, Alert - HEENT Head: Normocephalic, Atraumatic Eyes: Normal Conjunctiva: Normal Cornea: Normal Pupils: PERRL Ears: Normal External canal: Normal Tympanic membrane: Normal Sinus: Normal Nasal: Normal Mouth/Lips: Normal Pharynx: Normal Neck: Normal - Respiratory Respiratory status: No respiratory distress Chest status: Nontender Breath sounds: Normal Chest palpation: Normal - Cardiovascular Rhythm: Regular Heart sounds: Normal auscultation Murmur: No - Abdominal Inspection: Normal Distension: No distension Bowel sounds: Normal Tenderness: Nontender Organomegaly: No organomegaly - Back Back: Normal, Nontender - Extremities General upper extremity: Normal inspection, Nontender, Normal color, Normal ROM , Normal temperature General lower extremity: Normal inspection, Nontender, Normal color, Normal ROM , Normal temperature, Normal weight bearing. No: Santosh's sign - Neurological Neuro grossly intact: Yes Cognition: Normal Orientation: AAOx4 [place] Coma Scale Eye Opening: Spontaneous [place] Coma Scale Verbal: Oriented [place] Coma Scale Motor: Obeys Commands [place] Coma Scale Total: 15 Speech: Normal Motor strength normal: LUE, RUE, LLE, RLE Sensory: Normal - Psychological Associated symptoms: Normal affect, Normal mood - Skin Skin Temperature: Warm Skin Moisture: Dry Skin Color: Normal Course - Re-evaluation Re-evalutation: 06/23/17 23:00 Patient coming in flulike symptoms. Patient laboratory studies not reveal any significant pathology no signs of strep infection normal white count. Lung sounds are clear patient feeling better GI cocktail ketorolac injection and Tylenol. Patient requesting ketorolac pills. I did evaluate the patient's narcotic database patient states she is allergic to tramadol however was given a prescription for tramadol on June 01 and June 09. Both of these prescriptions were filled. Patient was encouraged to continue her home medication patient does have a follow-up visit with her infectious disease personnel on Thursday. Patient will be given nausea medication on her requested Toradol and will be discharged home - Vital Signs Vital signs: Temp Pulse Resp BP Pulse Ox 97.8 F 88 20 121/75 98 06/23/17 19:36 06/23/17 21:49 06/23/17 21:49 06/23/17 21:49 06/23/17 21:49 - Laboratory Result Diagrams: 06/23/17 20:08 06/23/17 20:08 Laboratory results interpreted by me: 06/23/17 06/23/17 20:08 20:08 RDW 15.5 H AST 39 H Total Protein 10.0 H Discharge - Discharge Clinical Impression: Flu-like symptoms Condition: Good Disposition: HOME, SELF-CARE Instructions: Influenza ([facility]) [id number], Viral Syndrome ([facility]) Additional Instructions: Your laboratory studies today do not show any signs of strep infection your white count is within normal limits with no signs of immunocompromise state. Do believe your symptoms are due to underlying viral illness. Please make sure he follow-up with your primary care physician return to ER symptoms worsen. He may use the lidocaine given to you here in ER to swish and gargle to aid in your throat pain. Take the Toradol as prescribed Prescriptions: Ketorolac Tromethamine [Toradol 10 mg Tablet] 10 mg PO Q8HP PRN #20 tablet PRN Reason: Promethazine HCl [Phenergan 25 mg Tablet] 25 mg PO Q6 #30 tablet Forms: Return to Work
[2017-06-23 21:49] VITALS: BP 121/75
== END 2017-06-23 21:49 | disposition home or self-care (01) ==
LOC: ER 19:02
DX: R11.2 Nausea with vomiting, unspecified (principal); M79.1 Myalgia; R53.83 Other fatigue; Z21 Asymptomatic human immunodeficiency virus [HIV] infection status; Z87.891 Personal history of nicotine dependence; Z87.442 Personal history of urinary calculi; Z98.51 Tubal ligation status
CPT/HCPCS: 99283; 96372; 36415; 87070; 87880; 85025; 80053; J3490 ×4; J1885

== ENCOUNTER 2018-01-25 12:33 | Emergency (ER) | payer MEDICAID ==
[2018-01-25 12:42] VITALS: BP 144/95
[2018-01-25] MEDS ORDERED: OXYCODONE-ACETAMINOPHEN 5-325 MG TABLET PO ONE (13:33)
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
--- NOTE | 2018-01-25 14:46 | ER Document Report ---
ED General - General Chief Complaint: Abscess Stated Complaint: LEFT BREAST PAIN Time Seen by Provider: 01/25/18 12:43 Mode of Arrival: Ambulatory Information source: Patient Notes: 47-year-old female presents emergency department with complaints of left breast pain for the last couple of months. Patient has a history of HIV and is following up with an audio video repairer in [place]. Patient states that she discussed with her HIV doctor the pain that she has been having in the left breast. A mammogram was ordered. She states that she is scheduled for the mammogram in 1 week. Patient states that last night the pain began worsening. She states that in the 3 o'clock position. She also states that a couple months ago she had some white drainage from her nipple. Patient denies any drainage at this time. She denies any fever, chills, chest pain, shortness of breath. Patient states that she is not currently on any antibiotics. TRAVEL OUTSIDE OF THE [place] IN LAST 30 DAYS: No - HPI Onset: Other - "multiple months" Onset/Duration: Persistent Quality of pain: Dull Severity: Mild Associated symptoms: None Exacerbated by: Denies Relieved by: Denies Similar symptoms previously: Yes Recently seen / treated by doctor: Yes - Related Data Allergies/Adverse Reactions: phenytoin sodium extended [From Dilantin] Allergy (Intermediate, Verified 12:36) rash topiramate [From Topamax] Allergy (Verified 01/25/18 12:36) Anaphylaxis tramadol [Tramadol] Allergy (Verified 01/25/18 12:36) Urticaria Past Medical History - General Information source: Patient - Social History Smoking Status: Former Smoker Family History: Reviewed & Not Pertinent Patient has suicidal ideation: No Patient has homicidal ideation: No - Past Medical History Cardiac Medical History: Denies: Hx Heart Attack, Hx Hypertension Pulmonary Medical History: Reports: Hx Asthma Denies: Hx Bronchitis, Hx COPD, Hx Pneumonia Neurological Medical History: Reports: Hx Migraine, Hx Seizures - last Renal/ Medical History: Reports: Hx Kidney Stones. Denies: Hx Peritoneal Dialysis Musculoskeletal Medical History: Reports Hx Arthritis - osteoarthritis, Reports Hx Musculoskeletal Trauma Skin Medical History: Reports Hx Cellulitis Traumatic Medical History: Reports: Hx Fractures Infectious Medical History: Reports: Hx HIV - No detectable viral loads Past Surgical History: Reports: Hx Abdominal Surgery - hernia, Hx Adenoidectomy , Hx Appendectomy, Hx Inguinal Hernia, Hx Tonsillectomy, Hx Tubal Ligation - Immunizations Immunizations up to date: Yes Hx Diphtheria, Pertussis, Tetanus Vaccination: Yes Review of Systems - Review of Systems Constitutional: No symptoms reported EENT: No symptoms reported Cardiovascular: No symptoms reported Respiratory: No symptoms reported Gastrointestinal: No symptoms reported Genitourinary: No symptoms reported Female Genitourinary: No symptoms reported Musculoskeletal: No symptoms reported Skin: No symptoms reported, Other - L breast pain Hematologic/Lymphatic: No symptoms reported Neurological/Psychological: No symptoms reported -: Yes All other systems reviewed and negative Physical Exam - Vital signs Vitals: Temp Pulse Resp BP Pulse Ox 98.3 F 71 20 144/95 H 98 01/25/18 12:41 01/25/18 12:41 01/25/18 12:41 01/25/18 12:41 01/25/18 12:41 - Notes Notes: PHYSICAL EXAMINATION: GENERAL: Well-appearing, well-nourished and in no acute distress. HEAD: Atraumatic, normocephalic. EYES: Pupils equal round and reactive to light, extraocular movements intact, conjunctiva are normal. ENT: Nares patent, oropharynx clear without exudates. Moist mucous membranes. NECK: Normal range of motion, supple without lymphadenopathy LUNGS: Breath sounds clear to auscultation bilaterally and equal. No wheezes rales or rhonchi. BREAST: Patient is tender to the left breast at the 2-3oclock position. Possible small mass in this area. No signs of infection of the breast. No erythema, fluctuance, warmth. No nipple discharge. HEART: Regular rate and rhythm without murmurs ABDOMEN: Soft, nontender, nondistended abdomen. No guarding, no rebound. No masses appreciated. Female : deferred Musculoskeletal: Normal range of motion, no pitting or edema. No cyanosis. NEUROLOGICAL: Cranial nerves grossly intact. Normal speech, normal gait. Normal sensory, motor exams PSYCH: Normal mood, normal affect. SKIN: Warm, Dry, normal turgor, no rashes or lesions noted. Course - Re-evaluation Re-evalutation: 01/25/18 14:43 Physical exam is remarkable for possible small mass at the 2 to 3 o'clock position of the left breast. No signs of infection were identified. There is no erythema, warmth, nipple discharge, fluctuance. The [facility] ordered an ultrasound of the left breast to appreciate for possible abscess. Ultrasound said that they would be unable to perform this test. They recommended a mammogram. Patient has a mammogram scheduled for 02/02/18. I will start the patient on prophylactic antibiotics as there's no signs of infection and patient denies fever, chills. Patient instructed to follow-up with her primary care physician this week, to take medication as directed, and to return to the emergency department for worsening symptoms. - Vital Signs Vital signs: Temp Pulse Resp BP Pulse Ox 98.3 F 71 20 144/95 H 98 01/25/18 12:41 01/25/18 12:41 01/25/18 12:41 01/25/18 12:41 01/25/18 12:41 Discharge - Discharge Clinical Impression: Breast mass in female Condition: Good Disposition: HOME, SELF-CARE Instructions: Trimethoprim-Sulfa ([facility]), Breast Lumps ([facility]), Breast Self- Examination ([facility]) Additional Instructions: Keep your mammogram appointment that is scheduled. Take the medication as directed. Follow up with your primary care physician this week for a follow up appointment. Return to the emergency department if you begin having fever, chills, or see signs of infection to the Left breast. Prescriptions: Sulfamethoxazole/Trimethoprim [Bactrim Ds Tablet] 1 each PO BID #14 tablet Referrals: SIRENA ALATORRE DO [NO LOCAL MD] - Follow up as needed
== END 2018-01-25 15:01 | disposition home or self-care (01) ==
LOC: ER 12:33
DX: N61.1 Abscess of the breast and nipple (principal); N64.4 Mastodynia; Z87.891 Personal history of nicotine dependence; I10 Essential (primary) hypertension; J45.909 Unspecified asthma, uncomplicated
CPT/HCPCS: 99283

== ENCOUNTER 2018-07-09 21:03 | Emergency (ER) | payer MEDICAID ==
[2018-07-09 21:53] LABS: APPEARANCE,URINE SLIGHTLY-CLOUDY; BILIRUBIN,URINE NEGATIVE (NEGATIVE); COLOR,URINE YELLOW; GLUCOSE, URINE NEGATIVE (NEGATIVE); KETONES,URINE NEGATIVE (NEGATIVE); LEUKOCYTE ESTERASE,URINE NEGATIVE (NEGATIVE); NITRITE,URINE NEGATIVE (NEGATIVE); PROTEIN,URINE NEGATIVE (NEGATIVE); URINE SPECIFIC GRAVITY 1.032
[2018-07-09] MEDS ORDERED: OXYCODONE-ACETAMINOPHEN 5-325 MG TABLET PO ONE (23:58)
[2018-07-09] MEDS ORDERED: ONDANSETRON 4 MG TAB.RAPDIS PO ONE (23:58)
--- NOTE | 2018-07-10 | ER Document Report ---
ED Medical Screen (RME) - General Chief Complaint: Flank Pain Stated Complaint: FLANK PAIN Time Seen by Provider: 07/09/18 23:56 Notes: 47-year-old female coming in today for right flank pain. Her doctor told her that she had kidney stones because they saw him on the x-ray. Patient has chronic back and right leg neuropathic pain. Also complaining of headaches and a bad cough and wheezing. Patient has history of HIV disease. I have treated and performed a rapid initial assessment of this patient. A comprehensive ED assessment and evaluation of the patient, analysis of test results and completion of medical decision making process will be conducted by additional ED providers. PHYSICAL EXAMINATION: GENERAL: Well-appearing, well-nourished and in no acute distress. A&Ox4. Answers questions appropriately. LUNGS: Diminished breath sounds bilateral HEART: Regular rate and rhythm without murmurs, rubs, gallops. ABDOMEN: Soft, nondistended abdomen. No guarding, no rebound. Normal bowel sounds present. No CVA tenderness bilaterally. Extremities: No cyanosis, clubbing, or edema b/l. NEUROLOGICAL: Normal speech, normal gait. PSYCH: Normal mood, normal affect. TRAVEL OUTSIDE OF THE [place] IN LAST 30 DAYS: No - Related Data Allergies/Adverse Reactions: phenytoin sodium extended [From Dilantin] Allergy (Intermediate, Verified 01/25/18 12:36) rash topiramate [From Topamax] Allergy (Verified 01/25/18 12:36) Anaphylaxis tramadol [Tramadol] Allergy (Verified 01/25/18 12:36) Urticaria Past Medical History - Past Medical History Cardiac Medical History: Denies: Hx Heart Attack, Hx Hypertension Pulmonary Medical History: Reports: Hx Asthma Denies: Hx Bronchitis, Hx COPD, Hx Pneumonia Neurological Medical History: Reports: Hx Migraine, Hx Seizures - last Renal/ Medical History: Reports: Hx Kidney Stones. Denies: Hx Peritoneal Dialysis Musculoskeltal Medical History: Reports Hx Arthritis - osteoarthritis, Reports Hx Musculoskeletal Trauma Skin Medical History: Reports Hx Cellulitis Traumatic Medical History: Reports: Hx Fractures Infectious Medical History: Reports: Hx HIV - No detectable viral loads Past Surgical History: Reports: Hx Abdominal Surgery - hernia, Hx Adenoidectomy, Hx Appendectomy, Hx Inguinal Hernia, Hx Tonsillectomy, Hx Tubal Ligation - Immunizations Immunizations up to date: Yes Hx Diphtheria, Pertussis, Tetanus Vaccination: Yes Physical Exam - Vital signs Vitals: Temp Pulse Resp BP Pulse Ox 97.9 F 63 18 146/84 H 99 07/09/18 22:38 07/09/18 22:38 07/09/18 22:38 07/09/18 22:38 07/09/18 22:38 Course - Vital Signs Vital signs: Temp Pulse Resp BP Pulse Ox 97.9 F 63 18 146/84 H 99 07/09/18 22:38 07/09/18 22:38 07/09/18 22:38 07/09/18 22:38 07/09/18 22:38 - Laboratory Laboratory results interpreted by me: 07/09/18 21:35 Urine Urobilinogen 2.0 H
[2018-07-10 00:35] LABS: ABSOLUTE BASOPHILS # (AUTO) 0.1 10^3/uL (0.0-0.2); ABSOLUTE EOSINOPHILS # (AUTO) 0.1 10^3/uL (0.0-0.6); ABSOLUTE LYMPHOCYTES (AUTO) 2.5 10^3/uL (0.5-4.7); ABSOLUTE MONOCYTES (AUTO) 0.6 10^3/uL (0.1-1.4); ABSOLUTE NEUT (AUTO) 4.6 10^3/uL (1.7-8.2); BASOPHILS % (AUTO) 0.7 % (0-2); HEMATOCRIT 31.3 % (36.0-47.0); HEMOGLOBIN 10.5 g/dL (12.0-15.5); LYMPHOCYTES % (AUTO) 31.9 % (13-45); MEAN CORPUSCULAR HEMOGLOBIN 28.8 pg (27.0-33.4); MEAN CORPUSCULAR HGB CONC 33.5 g/dL (32.0-36.0); MEAN CORPUSCULAR VOLUME 86 fl (80-97); MONOCYTES % (AUTO) 8.1 % (3-13); PLATELET COUNT 332 10^3/uL (150-450); RED BLOOD COUNT 3.64 10^6/uL (3.72-5.28); RED CELL DISTRIBUTION WIDTH 16.6 % (11.5-14.0); SEGMENTED NEUTROPHILS % (AUTO) 58.3 % (42-78); TOTAL CELLS COUNTED % (AUTO) 100 %; WHITE BLOOD COUNT 7.9 10^3/uL (4.0-10.5)
[2018-07-10 00:57] LABS: ALANINE AMINOTRANSFERASE 19 U/L (9-52); ALKALINE PHOSPHATASE 104 U/L (38-126); ANION GAP 11 (5-19); ASPARTATE AMINO TRANSFERASE 34 U/L (14-36); BILIRUBIN,DIRECT 0.2 mg/dL (0.0-0.4); BILIRUBIN,TOTAL 0.3 mg/dL (0.2-1.3); BLOOD UREA NITROGEN 19 mg/dL (7-20); CALCIUM 9.2 mg/dL (8.4-10.2); CARBON DIOXIDE 23 mmol/L (22-30); CHLORIDE 108 mmol/L (98-107); GLUCOSE 118 mg/dL (75-110); POTASSIUM 4.5 mmol/L (3.6-5.0); SODIUM 141.8 mmol/L (137-145); TOTAL PROTEIN 8.5 g/dL (6.3-8.2)
[2018-07-10] MEDS ORDERED: HYDROMORPHONE HCL INJ/PF 2 MG/ML AMPULE IM ONE ×2 (01:44→03:03)
[2018-07-10] MEDS ORDERED: PROMETHAZINE HCL 25 MG TABLET PO ONE (01:44)
--- NOTE | 2018-07-10 02:04 | ER Document Report ---
ED General - General Chief Complaint: Flank Pain Stated Complaint: FLANK PAIN Time Seen by Provider: 07/09/18 23:56 Mode of Arrival: Ambulatory Information source: Patient Notes: This is a 47-year-old female with a history of HIV, kidney stones, recurrent placed dislocation (chronic pain) who presents to the emergency room with right flank pain. Patient denies fever. She denies any nausea vomiting. TRAVEL OUTSIDE OF THE [place] IN LAST 30 DAYS: No - HPI Onset: Just prior to arrival Onset/Duration: Gradual Quality of pain: Dull Severity: Moderate Pain Level: 3 Associated symptoms: denies: Chest pain, Fever, Shortness of breath Exacerbated by: Movement Relieved by: Remaining still Similar symptoms previously: Yes Recently seen / treated by doctor: No - Related Data Allergies/Adverse Reactions: phenytoin sodium extended [From Dilantin] Allergy (Intermediate, Verified 01/25/18 12:36) rash topiramate [From Topamax] Allergy (Verified 01/25/18 12:36) Anaphylaxis tramadol [Tramadol] Allergy (Verified 01/25/18 12:36) Urticaria Past Medical History - General Information source: Patient - Social History Smoking Status: Unknown if Ever Smoked Cigarette use (# per day): No Chew tobacco use (# tins/day): No Frequency of alcohol use: None Lives with: Family Family History: Reviewed & Not Pertinent Patient has suicidal ideation: No Patient has homicidal ideation: No - Past Medical History Cardiac Medical History: Denies: Hx Heart Attack, Hx Hypertension Pulmonary Medical History: Reports: Hx Asthma Denies: Hx Bronchitis, Hx COPD, Hx Pneumonia Neurological Medical History: Reports: Hx Migraine, Hx Seizures - last Renal/ Medical History: Reports: Hx Kidney Stones. Denies: Hx Peritoneal Dialysis Musculoskeletal Medical History: Reports Hx Arthritis - osteoarthritis, Reports Hx Musculoskeletal Trauma Skin Medical History: Reports Hx Cellulitis Traumatic Medical History: Reports: Hx Fractures Infectious Medical History: Reports: Hx HIV - No detectable viral loads Past Surgical History: Reports: Hx Abdominal Surgery - hernia, Hx Adenoidectomy, Hx Appendectomy, Hx Inguinal Hernia, Hx Tonsillectomy, Hx Tubal Ligation - Immunizations Immunizations up to date: Yes Hx Diphtheria, Pertussis, Tetanus Vaccination: Yes Review of Systems - Review of Systems Constitutional: denies: Chills, Fever EENT: No symptoms reported Cardiovascular: denies: Chest pain, Palpitations, Heart racing Respiratory: No symptoms reported Gastrointestinal: Other - Right flank pain. denies: Abdomen distended, Vom iting, Constipation Genitourinary: No symptoms reported Female Genitourinary: No symptoms reported Musculoskeletal: See HPI Skin: No symptoms reported Hematologic/Lymphatic: No symptoms reported Neurological/Psychological: No symptoms reported Physical Exam - Vital signs Vitals: Temp Pulse Resp BP Pulse Ox 97.9 F 63 18 146/84 H 99 07/09/18 22:38 07/09/18 22:38 07/09/18 22:38 07/09/18 22:38 07/09/18 22:38 Notes: Physical exam: GENERAL: Patient is alert and oriented x3, complaining of right CVA tenderness HEAD: Atraumatic, normocephalic. EYES: Pupils equal round and reactive to light, extraocular movements intact, sclera anicteric, conjunctiva are normal. ENT: TMs normal, nares patent, oropharynx clear without exudates. Moist mucous membranes. NECK: Normal range of motion, supple without obvious mass or JVD. LUNGS: Breath sounds clear to auscultation bilaterally and equal. No wheezes rales or rhonchi. HEART: Regular rate and rhythm without murmurs, rubs or gallops. ABDOMEN: Soft, normoactive bowel sounds. No tenderness to palpation. No guarding, no rebound. No masses appreciated. EXTREMITIES: Normal range of motion, no pitting or edema. No clubbing or cyanosis. NEUROLOGICAL: Cranial nerves II through XII grossly intact. Normal speech, moving all extremities. PSYCH: Normal mood, normal affect. SKIN: Warm, Dry, normal turgor, no rashes or lesions noted. Course - Re-evaluation Re-evalutation: 07/10/18 03:05 Note: CT shows no evidence of acute or active uropathy or kidney stones. The clinical point of view, I think the pain is more musculoskeletal. She does have evidence of a mild UTI but I do not think that has anything to do with her symptoms (I do not think she has pyelonephritis). Patient will be following up with her infectious disease doctor and I will send her home with antiemetics, antibiotics and a copy of the CAT scan and lab results. - Vital Signs Vital signs: Temp Pulse Resp BP Pulse Ox 97.9 F 63 18 146/84 H 99 04/26/19 22:38 07/09/18 22:38 07/09/18 22:38 07/09/18 22:38 07/09/18 22:38 - Laboratory Result Diagrams: 07/10/18 00:20 07/10/18 00:20 Laboratory results interpreted by me: 07/09/18 07/10/18 07/10/18 21:35 00:20 00:20 RBC 3.64 L Hgb 10.5 L Hct 31.3 L RDW 16.6 H Chloride 108 H Glucose 118 H Total Protein 8.5 H Urine Urobilinogen 2.0 H Discharge - Discharge Clinical Impression: Flank pain, UTI Condition: Stable Disposition: HOME, SELF-CARE Additional Instructions: I want you to take the antibiotics as prescribed. Take the Zofran for nausea. Drink plenty of fluid. When she to follow-up with your primary care doctor and bring a copy of today's CT scan as well as the lab results with you. Return to the emergency room for any worsening pain. Prescriptions: Cephalexin Monohydrate [Keflex 500 mg Capsule] 500 mg PO Q6H 5 Days capsule
--- NOTE | 2018-07-10 02:33 | RADIOLOGY REPORT (SQ) ---
Chest 2 view on 07/10/2018 at 2:09 AM CLINICAL INDICATION: Cough COMPARISON: 12/09/2015 FINDINGS: The lungs are clear. Cardiac, hilar and mediastinal contours are within normal limits. Pulmonary vascularity is within normal limits. No bony abnormality is noted. IMPRESSION: No active disease.
--- NOTE | 2018-07-10 02:34 | RADIOLOGY REPORT (SQ) ---
EXAM DESCRIPTION: CT ABDOMEN PELVIS WITHOUT IV CONTRAST COMPLETED DATE/TME: 07/10/2018 01:42 CLINICAL HISTORY: 47 years, Female, right flank pain COMPARISON: None. TECHNIQUE: Axial CT images of the abdomen and pelvis were obtained without contrast. Sagittal and coronal reformats were performed. DL [id number] Images stored on PACS. All CT scanners at this facility use dose modulation, iterative reconstruction, and/or weight based dosing when appropriate to reduce radiation dose to as low as reasonably achievable (ALARA). [facility]: Dose Right [facility]: CareDose [facility]: Dose Right [facility]: Teradose 4D [facility]: Smart Ceph[employer]ics LIMITATIONS: None. FINDINGS: The lung bases are clear. The liver, gallbladder, pancreas, spleen, and adrenal glands are unremarkable. There is no evidence of urolithiasis or hydronephrosis bilaterally. There is a 3.4 cm left renal cyst. There is no intraperitoneal free air or fluid. There is no lymphadenopathy. The abdominal aorta is normal in caliber. There is a small hiatal hernia. The small bowel appears unremarkable. The appendix is not uniquely identified, however there are no pericecal inflammatory changes. The colon contains a moderate amount of stool. The uterus, adnexa, and urinary bladder are unremarkable. There are no lytic or blastic bone lesions. IMPRESSION: No acute findings. No evidence of urolithiasis or hydronephrosis. Small hiatal hernia. The appendix is not uniquely identified, however there are no pericecal inflammatory changes. TECHNICAL DOCUMENTATION: Quality ID # [id number]: Final reports with documentation of one or more dose reduction techniques (e.g., Automated exposure control, adjustment of the mA and/or kV according to patient size, use of iterative reconstruction technique) copyright 2011 [employer]- All Rights Reserved
[2018-07-10] MEDS ORDERED: ONDANSETRON ODT 4 MG TAB (6 TAB/ER DISP) PO PRN (03:04)
[2018-07-10 03:27] VITALS: BP 132/80
== END 2018-07-10 03:28 | disposition home or self-care (01) ==
LOC: ER 21:03
DX: N39.0 Urinary tract infection, site not specified (principal); R10.9 Unspecified abdominal pain; B20 Human immunodeficiency virus [HIV] disease; J45.909 Unspecified asthma, uncomplicated
CPT/HCPCS: 99284; 96372; 36415; 85025; 81025; 80053; 81001; 71046; 74176; S0119; J1170; J3490

== ENCOUNTER 2018-08-01 20:42 | Emergency (ER) | payer OTHER, MEDICAID ==
[2018-08-01] MEDS ORDERED: KETOROLAC TROMETHAMINE 60 MG/2 ML SDV IM ONE (23:25)
[2018-08-01] MEDS ORDERED: METHOCARBAMOL 500 MG TABLET PO ONE (23:25)
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
[2018-08-02] MEDS ORDERED: LIDOCAINE 5% (700 MG) TRANSDERMAL ADH..PATCH TP ONE (00:51)
[2018-08-02 01:12] VITALS: BP 146/95
== END 2018-08-02 01:11 | disposition home or self-care (01) ==
LOC: ER 20:42
DX: S60.221A Contusion of right hand, initial encounter (principal); S60.00XA Contusion of unspecified finger without damage to nail, initial encounter; M54.5 Low back pain; M79.641 Pain in right hand; V49.40XA Driver injured in collision with unspecified motor vehicles in traffic accident, initial encounter; W22.11XA Striking against or struck by driver side automobile airbag, initial encounter; J45.909 Unspecified asthma, uncomplicated; Z21 Asymptomatic human immunodeficiency virus [HIV] infection status; Z87.891 Personal history of nicotine dependence; Z88.8 Allergy status to other drugs, medicaments and biological substances; Z88.5 Allergy status to narcotic agent
CPT/HCPCS: 99283; 73130; 72110; J1885

== ENCOUNTER 2019-02-08 11:47 | Emergency (ER) | payer SELFPAY ==
--- NOTE | 2019-02-08 12:05 | ER Document Report ---
ED Medical Screen (RME) - General Chief Complaint: Fall Injury Stated Complaint: FALL/BACK/ARM PAIN/DIFFICULTY BREATHING Time Seen by Provider: 02/08/19 11:58 Mode of Arrival: Wheelchair Notes: 48-year-old female presented to ED for complaint of severe back pain. She states she does have some numbness down her right leg. She is on chronic pain management for chronic back pain. She is also on HIV medications. She states she did fall on Thursday when she slipped when mopping the floor and her dog jerked her. She states that the time she was not able to get up by herself but her boyfriend did get her up she got her took a Percocet and went to bed. She does take Percocet for her back pain. TRAVEL OUTSIDE OF THE [place] IN LAST 30 DAYS: No - HPI Onset: Other - Thursday Onset/Duration: Persistent Quality of pain: Sharp, Stabbing, Throbbing Severity: Severe Pain Level: 5 Exacerbated by: Sitting Relieved by: Supine Similar symptoms previously: Yes Recently seen / treated by doctor: No - Related Data Smoking: Other - She will smoker Frequency of alcohol use: Rare Drug Abuse: None Allergies/Adverse Reactions: phenytoin sodium extended [From Dilantin] Allergy (Intermediate, Verified 02/08/19 12:01) rash topiramate [From Topamax] Allergy (Verified 02/08/19 12:01) Anaphylaxis tramadol [Tramadol] Allergy (Verified 02/08/19 12:01) Urticaria Past Medical History - General Information source: Patient - Social History Cigarette use (# per day): Yes - Social sometimes Frequency of alcohol use: Rare Drug Abuse: None 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 Denies: Hx Peritoneal Dialysis Musculoskeltal Medical History: Reports Hx Arthritis - osteoarthritis, Reports Hx Musculoskeletal Trauma Skin Medical History: Reports Hx Cellulitis Traumatic Medical History: Reports: Hx Fractures - foot elbow Infectious Medical History: Reports: Hx HIV - No detectable viral loads Past Surgical History: Reports: Hx Adenoidectomy, Hx Appendectomy, Hx Inguinal Hernia, Hx Orthopedic Surgery - left foot right arm, Hx Tonsillectomy, Hx Tubal Ligation - Immunizations Immunizations up to date: Yes Hx Diphtheria, Pertussis, Tetanus Vaccination: Yes Review of Systems - Review of Systems Constitutional: No symptoms reported EENT: No symptoms reported Cardiovascular: No symptoms reported Respiratory: No symptoms reported Gastrointestinal: No symptoms reported Genitourinary: No symptoms reported Female Genitourinary: No symptoms reported Musculoskeletal: Back pain, Muscle pain Skin: No symptoms reported Hematologic/Lymphatic: No symptoms reported Neurological/Psychological: No symptoms reported -: Yes All other systems reviewed and negative Physical Exam - Vital signs Vitals: Temp Pulse Resp BP Pulse Ox 98.0 F 81 20 142/84 H 99 02/08/19 12:05 02/08/19 12:05 02/08/19 12:05 02/08/19 12:05 02/08/19 12:05 Interpretation: Normal - General General appearance: Appears well, Alert - HEENT Head: Normocephalic, Atraumatic Eyes: Normal Pupils: PERRL - Respiratory Respiratory status: No respiratory distress Chest status: Nontender Breath sounds: Normal Chest palpation: Normal - Cardiovascular Rhythm: Regular Heart sounds: Normal auscultation Murmur: No - Abdominal Inspection: Normal Distension: No distension Bowel sounds: Normal Tenderness: Nontender Organomegaly: No organomegaly - Back Back: Normal, Tender, Vertebra tenderness. No: Deformity/step-off, CVA tenderness, Scars, Scoliosis Notes: Signs or symptoms of cauda equina, she is able to walk with a steady gait. She has no saddle anesthesia, no loss of sensation to the lower extremities, no loss of control of bowel bladder, no loss of control of lower legs. - Extremities General upper extremity: Normal inspection, Nontender, Normal color, Normal ROM, Normal temperature General lower extremity: Normal inspection, Nontender, Normal color, Normal ROM, Normal temperature, Normal weight bearing. No: Santosh's sign - Neurological Neuro grossly intact: Yes Cognition: Normal Orientation: AAOx4 Luis Miguel Coma Scale Eye Opening: Spontaneous [place] Coma Scale Verbal: Oriented [place] Coma Scale Motor: Obeys Commands Luis Miguel Coma Scale Total: 15 Speech: Normal Motor strength normal: LUE, RUE, LLE, RLE Sensory: Normal - Psychological Associated symptoms: Normal affect, Normal mood - Skin Skin Temperature: Warm Skin Moisture: Dry Skin Color: Normal Course - Re-evaluation Re-evalutation: 02/08/19 19:58 After performing a Medical Screening Examination, I estimate there is LOW risk for EXPANDING OR RUPTURED ABDOMINAL AORTIC ANEURYSM, CAUDA EQUINA SYNDROME, EPIDURAL MASS LESION, or HERNIATED DISK CAUSING SEVERE SPINAL STENOSIS, thus I consider the discharge disposition reasonable. I have reevaluated this patient multiple times and no significant life threatening changes are noted. The patient and I have discussed the diagnosis and risks, and we agree with discharging home and close follow-up. We also discussed returning to the Emergency Department immediately if new or worsening symptoms occur with the understanding that symptoms and presentations can change. We have discussed the symptoms which are most concerning (e.g., saddle anesthesia, urinary or bowel incontinence or retention, changing or worsening pain) that necessitate immediate return. - Vital Signs Vital signs: Temp Pulse Resp BP Pulse Ox 98.2 F 72 16 125/73 97 02/08/19 13:12 02/08/19 13:12 02/08/19 13:12 02/08/19 13:12 02/08/19 13:12 - Diagnostic Test Radiology reviewed: Image reviewed, Reports reviewed Doctor's Discharge - Discharge Clinical Impression: Low back pain Qualifiers: Chronicity: chronic Back pain laterality: bilateral Sciatica presence: with sciatica Sciatica laterality: sciatica of right side Qualified Code(s): M54.41 - Lumbago with sciatica, right side Chronic back pain Qualifiers: Back pain location: low back pain Back pain laterality: bilateral Sciatica presence: with sciatica Sciatica laterality: sciatica of right side Qualified Code(s): M54.41 - Lumbago with sciatica, right side Condition: Stable Disposition: HOME, SELF-CARE Additional Instructions: Chronic Back Pain Chronic back pain (pain persisting longer than three months) is a common problem. A medical evaluation can look for herniated disc, arthritis, osteoporosis, tumors, and infections. But at least half the time, there's no obvious treatable cause. Anxiety and depression tend to worsen back pain. Ibuprofen or other anti-inflammatory medicine can help. A heating pad, used for 15-20 minutes at a time, can ease pain. For this type of back pain, narcotic medicines should be avoided. Muscle relaxers are rarely helpful unless you're having spasms. Activity is important. Find an aerobic exercise program that your back can tolerate. Too much rest makes back pain worse. Specific back exercises are usually prescribed to strengthen the back and abdominal muscles. Often, a physical therapist can help. Avoid heavy lifting, working while bent over, or standing with both knees straight. Most back pain patients do better with a firm mattress. If new symptoms of a "herniated disc" (radiation of pain, numbness, or tingling down the back of the leg or weakness in the leg) occur, you should be re-examined. Chronic Pain Control Stress, inactivity, and depression make pain more severe regardless of the cause of the pain. Stress and poor physical condition can cause pain such as headaches and backache. Relaxation: Rest in a quiet place with your eyes closed for 20 minutes twice daily. Concentrate on a pleasant image, or simply "feel" your breathing. Clear your mind. Stress management: Deal with your "stressors." Either take action, or eliminate the stressor from your life. Don't let things hang over you. Accept those things you can't change. Nutrition: Eat small, balanced meals -- don't skip, don't overeat. Meals should be high-carbohydrate, low-sugar, low-fat. Exercise: Exercise helps painful conditions and eases stress. Get 30 minutes of moderate exercise, five days a week. Do an activity that does not flare your pain. Precautions: Pain which continues to disrupt daily activities, or which changes in nature, requires a medical evaluation. Pain Clinic referral is available. We do not manage chronic pain in the Emergency Department. We will try to appropriately help you through an acute flare of your chronic painful condition, but for on-going chronic pain that does not improve, you will need to see your private doctor or animated cartoons painter. We do not provide repeated medication management of chronic painful conditions. If you wish, we can provide the name of local pain management physicians. Toradol Injection You have been given an injection of ketorolac tromethamine (Toradol). This is an excellent, safe drug for pain control. It also has potent antiinflammatory action. You should have significant pain relief within about one hour. Toradol is not addicting and is non-sedating. It does not interfere with driving or work. Call or return if you develop itching, hives, shortness of breath, or rash. STEROID MEDICATION: You have been given an injection of medicine of the cortisone/steroid class. This medication is used to control inflammation or allergy. It is often continued as a pill for a short period of time, until the acute process sub sides. There are usually no side effects from short-term use of cortisone-like medications. Some persons feel an increased sense of well-being and are not sleepy at bedtime. Long-term use of cortisone medications is best avoided, unless required for a severe condition. If your condition does not remit, or relapses after the course of corticosteroid medication, you should consult your physician. ICE PACKS: Apply ice packs frequently against the painful area. Many different schedules are recommended, such as "20 minutes on, 20 minutes off" or "one hour ice, two hours rest." If you need to work, you may need to go longer between ice treatments. You should plan to have the area ice packed AT LEAST one fourth of the time. The ice should be applied over the wrap, tape, or splint, or over a layer of cloth -- not directly against the skin. Some ice bags have a built-in cloth and can be put directly on the skin. WARM PACKS: After approximately two days, apply gentle heat (such as a heating pad or hot water bottle) for about 20 to 30 minutes about every two hours -- at least four times daily. Warmth and elevation will help you make a more rapid recov arsalan, and will ease the pain considerably. Do not use HOT heat, and never apply heat for longer than 30 minutes. The continuous heat can invisibly damage skin and muscles -- even when no burn is seen on the surface. Damaged muscles can make you MORE sore. Stretching Exercises for the Back The physician has recommended that you begin stretching exercises for your back. These are often used even while the back is painful. However, you should notify the physician if the activities seem to increase your pain. PELVIC TILT: Lie flat on your back with knees bent. Tighten your stomach and buttock muscles so it flattens your lower back against the floor. Hold 10 seconds. Repeat 10 times, twice daily. KNEE RAISE: Lying on the back with knees bent, raise one knee to your chest, then the other. Hold both knees against the chest 10 seconds, then lower one knee at a time. Repeat 10 times, twice daily. PARTIAL TRUNK RAISE: Lie face down, arms at your sides. Keeping your waist on the floor, use your arms raise your chest up. Support yourself on your elbows for 30 seconds. Repeat twice daily, increasing the time to two minutes as you recover. FOLLOW-UP CARE: If you have been referred to a physician for follow-up care, call the physicians office for an appointment as you were instructed or within the next two days. If you experience worsening or a significant change in your symptoms, notify the physician immediately or return to the Emergency Department at any time for re-evaluation. Forms: Elevated Blood Pressure, Smoking Cessation Education, Return to Work
[2019-02-08] MEDS ORDERED: KETOROLAC TROMETHAMINE INJ/PF 30 MG/1 ML SDV IM ONE (12:07)
[2019-02-08] MEDS ORDERED: DEXAMETHASONE SOD PHOS INJ 10 MG/1 ML VIAL IM ONE (12:07)
--- NOTE | 2019-02-08 12:49 | RADIOLOGY REPORT (SQ) ---
EXAM DESCRIPTION: L SPINE WHOLE COMPLETED DATE/TIME: 02/08/2019 12:35 pm REASON FOR STUDY: low back pain COMPARISON: 08/01/2018 NUMBER OF VIEWS: Five views including obliques. TECHNIQUE: AP, lateral, oblique, and sacral radiographic images acquired of the lumbar spine. LIMITATIONS: None. FINDINGS: MINERALIZATION: Normal. SEGMENTATION: Normal. No transitional anatomy. ALIGNMENT: Normal. VERTEBRAE: Maintained height. No fracture or worrisome bone lesion. DISCS: Preserved height. No significant osteophytes or end plate irregularity. POSTERIOR ELEMENTS: Pedicles and facets are intact. No pars defect or posterior arch defects. HARDWARE: None in the spine. PARASPINAL SOFT TISSUES: Normal. PELVIS: Intact as visualized. No fractures or worrisome bone lesions. SI joints intact. OTHER: No other significant finding. IMPRESSION: NORMAL 5 VIEW LUMBAR SPINE. TECHNICAL DOCUMENTATION: JOB ID: [id number] [email or web address] All Rights Reserved Reading location - IP/workstation name: [email or web address]
[2019-02-08 13:13] VITALS: BP 125/73
== END 2019-02-08 13:15 | disposition home or self-care (01) ==
LOC: ER 11:47
DX: M54.41 Lumbago with sciatica, right side (principal); G89.29 Other chronic pain; M54.9 Dorsalgia, unspecified
CPT/HCPCS: 99283; 96372; 72110; J1885; J1100

== ENCOUNTER 2020-01-06 19:47 | Emergency (ER) | payer SELFPAY ==
--- NOTE | 2020-01-06 20:13 | ER Document Report ---
ED Medical Screen (RME) - General Chief Complaint: Urinary Frequency Stated Complaint: FLANK PAIN Time Seen by Provider: 01/06/20 20:02 Mode of Arrival: Ambulatory Information source: Patient Notes: HPI; 49-year-old female presents to the emergency room complaining of urinary frequency for the past week. States the pain is now into her left flank area. Takes oxycodone for her chronic pain with some relief. She denies any nausea, vomiting, no fevers. Also complaining of worsening chronic left knee pain. States got worse yesterday. States her oxycodone only gives her minimal relief of her knee pain. She denies any trauma or injury to her knee. PE: Alert and oriented x3. Lungs: Clear to auscultation without rales, rhonchi, wheezes. Heart: Regular rate and rhythm without murmurs, rubs, gallops. Positive for left CVA tenderness. Left knee is tender to palpation, painful range of motion with flexion extension. She is ambulatory with a steady gait. I have greeted and performed a rapid initial assessment of this patient. A comprehensive ED assessment and evaluation of the patient, analysis of test results and completion of the medical decision making process will be conducted by additional ED providers. I have specifically instructed the patient or family members with the patient to immediately return to any nursing staff should anything change in the patient's condition or with their chief complaint. TRAVEL OUTSIDE OF THE [place] IN LAST 30 DAYS: No - Related Data Allergies/Adverse Reactions: phenytoin sodium extended [From Dilantin] Allergy (Intermediate, Verified 02/08/19 12:01) rash topiramate [From Topamax] Allergy (Verified 02/08/19 12:01) Anaphylaxis tramadol [Tramadol] Allergy (Verified 02/08/19 12:01) Urticaria Home Medications: HIV MEDS Past Medical History - Social History Chew tobacco use (# tins/day): No Frequency of alcohol use: None Drug Abuse: None Family history: Reviewed & Not Pertinent Pulmonary Medical History: Reports: Hx Asthma Neurological Medical History: Reports: Hx Migraine, Hx Seizures - last Renal/ Medical History: Reports: Hx Kidney Stones. Denies: Hx Peritoneal Dialysis Musculoskeltal Medical History: Reports Hx Arthritis - osteoarthritis, Reports Hx Musculoskeletal Trauma Skin Medical History: Reports Hx Cellulitis Traumatic Medical History: Reports: Hx Fractures - foot elbow Infectious Medical History: Reports: Hx HIV - No detectable viral loads Past Surgical History: Reports: Hx Abdominal Surgery - hernia, Hx Adenoidectomy, Hx Appendectomy, Hx Inguinal Hernia, Hx Orthopedic Surgery - left foot right arm, Hx Tonsillectomy, Hx Tubal Ligation - Immunizations Immunizations up to date: Yes Hx Diphtheria, Pertussis, Tetanus Vaccination: Yes Physical Exam - Vital signs Vitals: Temp Pulse Resp BP Pulse Ox 97.8 F 64 16 186/109 H 97 01/06/20 19:57 01/06/20 19:57 01/06/20 19:57 01/06/20 19:57 01/06/20 19:57 Course - Vital Signs Vital signs: Temp Pulse Resp BP Pulse Ox 97.8 F 64 16 186/109 H 97 01/06/20 20:08 01/06/20 19:57 01/06/20 19:57 01/06/20 19:57 01/06/20 19:57
--- NOTE | 2020-01-06 20:53 | RADIOLOGY REPORT (SQ) ---
EXAM DESCRIPTION: Left knee RadLex: XR KNEE 4 OR MORE VIEWS Views: 4 CLINICAL HISTORY: 49 years Female; pain; COMPARISON: None. FINDINGS: Negative for acute fracture, dislocation, or radiopaque foreign body. No joint effusion. IMPRESSION: 1. No acute findings.
[2020-01-06 22:08] LABS: APPEARANCE,URINE SLIGHTLY-CLOUDY; BILIRUBIN,URINE NEGATIVE (NEGATIVE); COLOR,URINE YELLOW; GLUCOSE, URINE NEGATIVE (NEGATIVE); KETONES,URINE NEGATIVE (NEGATIVE); LEUKOCYTE ESTERASE,URINE NEGATIVE (NEGATIVE); NITRITE,URINE NEGATIVE (NEGATIVE); PROTEIN,URINE NEGATIVE (NEGATIVE); URINE SPECIFIC GRAVITY 1.024; UROBILINOGEN,URINE NEGATIVE mg/dL (<2.0)
[2020-01-07 01:13] LABS: ALBUMIN 4.2 g/dL (3.5-5.0); ALKALINE PHOSPHATASE 113 U/L (38-126); ANION GAP 6 (5-19); ASPARTATE AMINO TRANSFERASE 43 U/L (14-36); BILIRUBIN,DIRECT 0.5 mg/dL (0.0-0.4); BILIRUBIN,TOTAL 0.6 mg/dL (0.2-1.3); BLOOD UREA NITROGEN 20 mg/dL (7-20); CALCIUM 9.1 mg/dL (8.4-10.2); CARBON DIOXIDE 24 mmol/L (22-30); CHLORIDE 106 mmol/L (98-107); GLUCOSE 102 mg/dL (75-110); POTASSIUM 4.6 mmol/L (3.6-5.0); TOTAL PROTEIN 9.3 g/dL (6.3-8.2)
[2020-01-07] MEDS ORDERED: OXYCODONE-ACETAMINOPHEN 5-325 MG TABLET PO ONE (01:16)
[2020-01-07 02:19] LABS: HEMATOCRIT 27.4 % (36.0-47.0); HEMOGLOBIN 9.1 g/dL (12.0-15.5); MEAN CORPUSCULAR HEMOGLOBIN 25.2 pg (27.0-33.4); MEAN CORPUSCULAR HGB CONC 33.1 g/dL (32.0-36.0); MEAN CORPUSCULAR VOLUME 76 fl (80-97); RED BLOOD COUNT 3.59 10^6/uL (3.72-5.28); RED CELL DISTRIBUTION WIDTH 18.6 % (11.5-14.0); WHITE BLOOD COUNT 5.5 10^3/uL (4.0-10.5)
[2020-01-07 02:20] LABS: ABSOLUTE NEUT (AUTO) 2.5 10^3/uL (1.7-8.2); BASOPHILS % (AUTO) 0.4 % (0-2); EOSINOPHILS % (AUTO) 1.2 % (0-6); LYMPHOCYTES % (AUTO) 42.9 % (13-45); MONOCYTES % (AUTO) 9.5 % (3-13); PLATELET COUNT 269 10^3/uL (150-450); TOTAL CELLS COUNTED % (AUTO) 100 %
[2020-01-07 02:21] LABS: ABSOLUTE EOSINOPHILS # (AUTO) 0.1 10^3/uL (0.0-0.6); ABSOLUTE LYMPHOCYTES (AUTO) 2.4 10^3/uL (0.5-4.7); ABSOLUTE MONOCYTES (AUTO) 0.5 10^3/uL (0.1-1.4)
--- NOTE | 2020-01-07 02:21 | ER Document Report ---
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 Patient says the pain feels like it is radiating to leg and is worse when she wakes up in the morning, but also says that pain is similar to kidney stone she has had in the past. Patient bothered by urinary frequency but denies any dysuria, urgency, fever, vomiting, recent infections. Unknown HIV status, has not been on meds for approximately 1 year due to insurance situation is currently resolving. Patient denies any change in gait, weakness or numbness, trauma, vaginal symptoms. Patient also endorses approximately few weeks pain in the left knee atraumatic without any swelling, disability, trauma, weakness or numbness, rash. Triage note says bilateral flank pain but this is erroneous, patient only complaining of left flank pain, patient has chronic right hip pain since that is unchanged currently. TRAVEL OUTSIDE OF THE [place] IN LAST 30 DAYS: No - Related Data Allergies/Adverse Reactions: phenytoin sodium extended [From Dilantin] Allergy (Intermediate, Verified 02/08/19 12:01) rash topiramate [From Topamax] Allergy (Verified 02/08/19 12:01) Anaphylaxis tramadol [Tramadol] Allergy (Verified 02/08/19 12:01) Urticaria Home Medications: HIV MEDS Past Medical History - General Information source: Patient - Social History Smoking Status: Never Smoker Chew tobacco use (# tins/day): No Frequency of alcohol use: None Drug Abuse: None Family History: Reviewed & Not Pertinent Patient has homicidal ideation: No Pulmonary Medical History: Reports: Hx Asthma Neurological Medical History: Reports: Hx Migraine, Hx Seizures - last Renal/ Medical History: Reports: Hx Kidney Stones. Denies: Hx Peritoneal Dialysis Musculoskeletal Medical History: Reports Hx Arthritis - osteoarthritis, Reports Hx Musculoskeletal Trauma Skin Medical History: Reports Hx Cellulitis Traumatic Medical History: Reports: Hx Fractures - foot elbow Infectious Medical History: Reports: Hx HIV - No detectable viral loads Past Surgical History: Reports: Hx Abdominal Surgery - hernia, Hx Adenoidectomy, Hx Appendectomy, Hx Inguinal Hernia, Hx Orthopedic Surgery - left foot right arm, Hx Tonsillectomy, Hx Tubal Ligation - Immunizations Immunizations up to date: Yes Hx Diphtheria, Pertussis, Tetanus Vaccination: Yes Review of Systems - Review of Systems Notes: REVIEW OF SYSTEMS: CONSTITUTIONAL : Denies fever, chills, or sweats. EENT: Denies recent cold/sinus symptoms, denies throat pain CARDIOVASCULAR: Denies chest pain, PATRICE RESPIRATORY: Denies cough, denies shortness of breath. GASTROINTESTINAL: Denies abdominal pain, nausea/vomiting. GENITOURINARY: Denies difficulty urinating, painful urination. FEMALE GENITOURINARY: Denies abnormal vaginal bleeding, vaginal discharge. MUSCULOSKELETAL: Denies neck pain, trauma SKIN: Denies rash or skin lesions. HEMATOLOGIC : Denies easy bruising or bleeding. LYMPHATIC: Denies swollen, enlarged glands. NEUROLOGICAL: Denies headache, denies change in gait. PSYCHIATRIC: Denies anxiety or stress or depression. Physical Exam - Vital signs Vitals: Temp Pulse Resp BP Pulse Ox 97.8 F 64 16 186/109 H 97 01/06/20 19:57 01/06/20 19:57 01/06/20 19:57 01/06/20 19:57 01/06/20 19:57 - Notes Notes: PHYSICAL EXAMINATION: GENERAL: Well-appearing, well-nourished and in no acute distress. HEAD: Atraumatic, normocephalic. EYES: Pupils equal round and appropriate constriction, sclera anicteric, conjunctiva are normal. ENT: nares patent, moist mucous membranes. NECK: Normal range of motion, supple without lymphadenopathy LUNGS: Breath sounds clear to auscultation bilaterally and equal. No wheezes rales or rhonchi. HEART: Regular rate and rhythm without murmurs ABDOMEN: Soft, nontender, no guarding, no masses, no CVAT EXTREMITIES: Normal range of motion, no pitting or edema. No cyanosis. No C/T/L/S midline spinal tenderness or deformity, 5+ strength in all extremities, normal sensation in all extremities, left knee normal inspection no focal tenderness joint stable full range of motion, no midline spinal tenderness or deformity NEUROLOGICAL: Awake, alert, conversing appropriately, moves all extremities spontaneously. PSYCH: Normal mood, normal affect. SKIN: Warm, Dry, normal turgor, no rashes or lesions noted. Course - Re-evaluation Re-evalutation: 01/07/20 02:21 Very well-appearing patient, normal vital signs, on exam he has mild left leg pain but also pain over superior left buttock, rule out pyelonephritis, renal colic, UTI, new onset diabetes. Most likely sciatica, given lack of signs of infection on urinalysis and absence of vaginal symptoms concern for possible interstitial cystitis, will refer to urology for further evaluation. Obtain CT for rule out stones, awaiting labs. Likely DC with PCP, ID, and urology follow- up. 01/07/20 06:08 CT highly concerning for left renal cell carcinoma. No signs of infection, no obstruction, pain adequately controlled on home meds. No indication for admission currently, but given likelihood of malignancy and pt's lack of insurance I contacted urology at [facility] to arrange followup. Dr. Bernard says they see uninsured patients and could receive prompt follow up in their clinic. Pt ready for discharge. I informed patient of high concern for a malignant dangerous cancer and she demonstrated understanding of the seriousness of this and the need for follow-up. Printed out results of imaging and will give patient CD before she leaves. Patient ready for discharge, given extensive return to ED precautions which she demonstrated understanding of. - Vital Signs Vital signs: Temp Pulse Resp BP Pulse Ox 97.8 F 64 16 186/109 H 97 01/06/20 20:08 01/06/20 19:57 01/06/20 19:57 01/06/20 19:57 01/06/20 19:57 - Laboratory Result Diagrams: 01/07/20 01:54 01/07/20 00:46 Laboratory results interpreted by me: 01/06/20 01/07/20 01/07/20 20:45 00:46 01:54 RBC 3.59 L Hgb 9.1 L Hct 27.4 L MCV 76 L MCH 25.2 L RDW 18.6 H Sodium 136.2 L Direct Bilirubin 0.5 H AST 43 H Total Protein 9.3 H Urine Blood SMALL H Discharge - Discharge Clinical Impression: Renal mass, Left flank pain Hypertension Qualifiers: Hypertension type: unspecified Qualified Code(s): I10 - Essential (primary) hypertension Disposition: HOME, SELF-CARE Additional Instructions: You have a large and growing mass on your left kidney which could be cancer which is a possibly deadly disease that requires you to follow-up quickly with urology outpatient. You can follow-up at [facility]. Call [phone] to make appointment. Tell them that you were seen in the emergency department and consulted with Dr. Bernard. If you have worsening pain, fever, dizziness, weakness, fainting, inability to urinate, or any other worsening or alarming symptoms return to the emergency department immediately. Follow up with your primary doctor and infectious disease doctor within 1 week. Your blood pressure was high in the emergency department and needs to be rechecked, untreated blood pressure can cause heart attack stroke and . Return to the emergency department if you have any chest pain or trouble breathing. Forms: Elevated Blood Pressure, Return to Work Referrals: DINO BERNARD MD [NO LOCAL MD] - Follow up as needed SILVIA BURROWS MD [NO LOCAL MD] - Follow up as needed MICHELLE DENG MD [NO LOCAL MD] - Follow up as needed BRIDGETT CUELLAR MD [NO LOCAL MD] - Follow up as needed CRISTA ALMONTE [NO LOCAL MD] - Follow up as needed
--- NOTE | 2020-01-07 02:46 | RADIOLOGY REPORT (SQ) ---
CLINICAL INDICATION: left flank pain hematuria stone hx. . TECHNIQUE: Noncontrast enhanced spiral axial CT imaging was obtained of the abdomen and pelvis with multiplanar reconstructions. This exam was performed according to our departmental dose-optimization program, which includes automated exposure control, adjustment of the mA and/or kV according to patient size and/or use of iterative reconstruction techniques. COMPARISON: July 10, 2018, noncontrast. CORRELATION: None. FINDINGS: Abdomen: The lung bases are grossly clear. The heart is enlarged. No evidence of pleural or pericardial fluid. Small hiatal hernia. The liver is of normal size contour and attenuation. The gallbladder is nondistended without inflammatory change. The pancreas is unremarkable. The spleen is unremarkable. The adrenals are unremarkable. The kidneys demonstrate a large lesion of the left kidney midpole posteriorly. This measures 5.6 x 6.7 cm, series 2 image 33. On prior examination this abnormality measured 3.6 x 4 cm and was more homogeneous. It had a cystic appearance on prior.. Progressive left-sided hydronephrosis. No evidence of urolithiasis There is no evidence of free air. No free fluid. No bulky adenopathy. Abdominal aorta is nonaneurysmal. Pelvis: The bowel is nonobstructed. The bowel is unopacified with oral contrast. Pelvic contents are unremarkable. The appendix is not seen. No focal inflammatory changes. Moderate hard stool within the colon. Visualized bones demonstrate age-appropriate osteoarthritis. IMPRESSION: Large mass lesion of the left kidney, larger than prior. There is aggressive hydronephrosis. This represents renal cell carcinoma until proven otherwise. Urology consult is advised.
[2020-01-07] MEDS ORDERED: KETOROLAC TROMETHAMINE 60 MG/2 ML SDV IM ONE (04:53)
[2020-01-07 07:05] VITALS: BP 150/90
== END 2020-01-07 07:05 | disposition home or self-care (01) ==
LOC: ER 19:47
DX: N28.89 Other specified disorders of kidney and ureter (principal); R10.9 Unspecified abdominal pain; R35.0 Frequency of micturition; I10 Essential (primary) hypertension; G89.29 Other chronic pain; M25.551 Pain in right hip; B20 Human immunodeficiency virus [HIV] disease
CPT/HCPCS: 99285; 96372; 36415; 87086; 84703; 85025; 80053; 81001; 73564; 74176; J1885